=== PATIENT | female | born 1975 | race Caucasian/White ===

== ENCOUNTER → 2016-12-08 | Outpatient (CLI) | payer OTHER ==
--- NOTE | 2016-12-08 16:55 | Diagnostic Imaging Report ---
INDICATION: anatomical survey. COMPARISON: None. DISCUSSION: Transabdominal sonographic evaluation of the gravid uterus was performed. Marginal placenta previa is noted. The placenta is located anteriorly, and the margin appears to abut the internal cervical os. Single live intrauterine at 20 weeks 2 days by today's sonographic measurements. presentation is transverse. heart rate measures 138 beats per minute. The spine and cord insertion were not well seen due to positioning. Otherwise, there is good visualization of the kidneys, bladder, stomach, brain, four-chamber heart, and three-vessel cord. Biparietal diameter measures 4.6 cm. Head circumference measures 17.2 cm. Abdominal circumference measures 15.3 cm. Femur length measures 3.3 cm. IMPRESSION: 1. Single live intrauterine at 20 weeks 2 days by sonographic measurements. 2. Poor visualization of the spine and cord insertion due to positioning. Recommend short-term sonographic followup. 3. Marginal placenta previa. Dictated by: Dictated on workstation # [id number]
== END ==
LOC: RAD 15:05
PROVIDERS: ATTEND Obstetrics & Gynecology
DX: Z36 Encounter for antenatal screening of mother (principal); Z3A.20 20 weeks gestation of pregnancy
CPT/HCPCS: 76805

== ENCOUNTER 2017-04-14 18:45 | Inpatient (IN) | payer OTHER ==
[~2017-04-14] VITALS: Ht 167.6 cm; Wt 83.9 kg
[2017-04-14] VITALS (8 sets, daily range): BP systolic 114–130; BP diastolic 62–82
[2017-04-14] MEDS ORDERED: LACTATED RINGERS 1,000 ML IV ONE (19:15)
--- OUTSIDE RECORDS SUMMARY | 2017-04-14 19:19 | XMS REPORT ---
Author Author MILAD HOLLY Organization [employer] Address Unknown Phone Unavailable Care Team Providers Care Residential Mortgage Manager Name Role Phone MILAD HOLLY CP Unavailable Allergies No Known Allergies Problems Problem Type Condition Code Onset Dates Condition Status Assessment Encounter for immunization Z23 Active Problem Dysfunction of Eustachian tube 381.81 Active Problem Headache 784.0 Active Problem Unspecified viral infection, in conditions classified elsewhere and of unspecified site 079.99 Active Problem Acute pharyngitis 462 Active Problem Allergy, unspecified not elsewhere classified 995.3 Active Problem Need for prophylactic vaccination and inoculation, Influenza V04.81 Active Problem Other diseases of nasal cavity and sinuses 478.19 Active Medications No Known Medications Procedures Procedure Coding System Code Date SINGLE IMMUNIZATION ADMIN CPT-4 81797 May 16, 2015 FLUARIX QUAD (3 & UP)-GSK-2014 CPT-4 36432 May 16, 2015 Results No Known Results Immunizations Vaccine Administration Date FLUARIX QUAD (3 & UP)-GSK-2014May 16, 2015 Summary Purpose eClinicalWorks Submission
--- OUTSIDE RECORDS SUMMARY | 2017-04-14 19:19 | XMS REPORT ---
Author Author MILAD HOLLY [facility] [employer] [facility] Address [address] [place] [address] Care Team Providers Care Lamp Mechanic Name Role Phone MILAD HOLLY Unavailable PROBLEMS Unknown Problems ALLERGIES Substance Reaction Event Type Date Status N.K.D.A. Unknown Non Drug Allergy Aug, Unknown SOCIAL HISTORY No smoking Hx information available PLAN OF CARE Activity Details Follow Up 1 Week if no improvement Reason: VITAL SIGNS Height 65 in 2016-08-18 Weight 155 lbs 2016-08-18 Temperature 99.1 degrees Fahrenheit 2016-08-18 Heart Rate 86 bpm 2016-08-18 Respiratory Rate 16 2016-08-18 BMI 25.79 kg/m2 2016-08-18 Blood pressure systolic 118 mmHg 2016-08-18 Blood pressure diastolic 68 mmHg 2016-08-18 MEDICATIONS Unknown Medications RESULTS Name Result Date Reference Range MONO TEST (IN HOUSE) RESULTS negative Control + Lot # [id number] Exp date 11/06/2017 PROCEDURES Procedure Date Ordered Related Diagnosis Body Site HETEROPHILE ANTIBODIES Aug 18, 2016 Office Visit, Est Pt., Level 4 Aug 18, 2016 IMMUNIZATIONS No Known Immunizations
--- OUTSIDE RECORDS SUMMARY | 2017-04-14 19:19 | XMS REPORT ---
Author Author MILAD HOLLY [facility] eClinicalWorks Address Unknown Phone Unavailable Care Team Providers Care Aircraft Machinist Helper Name Role Phone MILAD HOLLY CP Unavailable [...] System Code Date SINGLE IMMUNIZATION ADMIN CPT-4 44435 May 27, 2015 TDAP (BOOSTRIX) CPT-4 64974 May 27, 2015 Results No Known Results Immunizations Vaccine Administration Date TDAP (BOOSTRIX) May 27, 2015 Summary Purpose eClinicalWorks Submission
--- OUTSIDE RECORDS SUMMARY | 2017-04-14 19:19 | XMS REPORT | Clinical Summary ---
Author Author User, [employer] Organization Portia Brewer DO, FACP Address Unknown Phone Allergies, Adverse Reactions, Alerts Allergy Name Reaction Description Start Date Severity Status Provider No Known Allergies Portia Brewer Conditions or Problems Problem Name Problem Code Onset Date Status Entry Date Provider Comment Standard Description Annotate CERVICAL RADICULOPATHY, RIGHT 723.4 Resolved Portia Brewer Brachial neuritis or radiculitis NOS NECK PAIN 723.1 Resolved Portia Brewer Cervicalgia ULNAR NERVE ENTRAPMENT, RIGHT 354.2 Resolved Portia Brewer Lesion of ulnar nerve WELL WOMAN V70.0 Resolved Portia Brewer Routine general medical examination at a health care facility HEMORRHOIDS 455.6 Active Portia Brewer Unspecified hemorrhoids without mention of complication HEMATURIA UNSPECIFIED 599.70 Resolved Portia Brewer Hematuria, unspecified CONTUSION, TRUNK 922.9 Resolved Portia Brewer Contusion of unspecified part of trunk INFLUENZA 487.8 Resolved Portia Brewer Influenza with other manifestations WELL WOMAN V70.0 Active Portia Brewer Routine general medical examination at a health care facility Medication List Medication Instructions Start Date Stop Date Generic Name NDC Status Provider Patient Instruction NAPROXEN 500 MG TAB 1 PO BID for 7 days then prn NAPROXEN 38668158637 No Longer Active Portiajeff Brewer LORTAB 5 5-500 MG TABS 1 to 2 PO Q6hrs prn ACETAMINOPHEN-HYDROCODONE 94530367858 No Longer Active Portia Swapna Brewer VALIUM 2 MG TABS 1/4 to 1/2 PO QHS prn muscle spasm DIAZEPAM 43862153005 No Longer Active Portia Swapna Brewer TAMIFLU 75 MG CAPS 1 po BID OSELTAMIVIR PHOSPHATE 81304248036 No Longer Active Portia Swapna Brewer CAROL 3-0.03 MG TABS 1 PO daily DROSPIRENONE-ETHINYL ESTRADIOL 56476571503 Active Portia Swapna Brewer XANAX 0.25 MG TABS 1 PO QHS prn ALPRAZOLAM 97755512655 Active Juany Sun PROAIR HFA 108 (90 BASE) MCG/ACT AERS 2 puffs Q4hrs prn wheezing ALBUTEROL SULFATE 45669015374 Active Portiajeff Brewer LIDOCAINE VISCOUS GEL Apply small amouunt on rectal area Q3hrs prn anal pain LIDOCAINE VISCOUS GEL No Longer Active Portiajeff Brewer LIDOCAINE VISCOUS 2 % SOLN 1/2 teaspooon on rectal area Q3hrs prn anal pain LIDOCAINE HCL 68439031749 No Longer Active Portiajeff Brewer ANUSOL-HC 25 MG SUPP 1 [place] QID prn HYDROCORTISONE ACETATE 59724882689 No Longer Active Portia Swapna Brewer ANUSOL-HC 2.5 % CREA apply to affected areas QID prn HYDROCORTISONE 57116304877 No Longer Active Portiajeff Brewer PREDNISONE 20 MG TAB 3 PO at once one day , then 2 PO at once daily for two days, then 1 PO daily for two days PREDNISONE 83123179097 No Longer Active Portiajeff Brewer Vital Signs Date Name Value Unit Range Description blood pressure, diastolic - 8462-4 67 mm[Hg] BP gray blood pressure, systolic - 8480-6 116 mm[Hg] BP sys pulse rate E&M - 8867-4 58 /min Heart rate respiratory rate E&M - 9279-1 14 /min Resp rate temperature E&M 98.8 [degF] Body temperature weight E&M - 3141-9 155 [lb_av] Weight Measured Diagnostic Results Date Name Value Unit Range Description Clinical Lists Update: CBC,CMP,FLP,TSH - Chemistry Estimated Glomerular Filtration Rate (calc) 75 mL/min/1.73m2 glucose, plasma fasting 93 mg/dL albumin, serum 4.0 g/dL alkaline phosphatase, serum 40 U/L urea nitrogen, blood 10 mg/dL calcium, serum 8.9 mg/dL chloride, serum 105 mmol/L cholesterol, serum 188 mg/dL cholesterol/HDL ratio, serum, percent 2.9 anion gap, serum 9 sodium, serum 137 mmol/L triglyceride, serum, fasting 127 mg/dL bilirubin, serum, total 0.4 mg/dL alanine aminotransferase (SGPT), serum 7 U/L aspartate aminotransferase (SGOT), serum 14 U/L protein, total, serum 6.5 g/dL potassium, serum 3.6 mmol/L LDL cholesterol, serum 99 mg/dL thyroid stimulating hormone, serum 1.31 u[iU]/mL HDL cholesterol, serum 64.0 mg/dL creatinine, serum 0.9 mg/dL carbon dioxide, venous blood 27.0 mmol/L Clinical Lists Update: CBC,CMP,FLP,TSH - Hematology erythrocyte (RBC) count 3.90 10*6/mm3 leukocyte count, blood 7.4 10*3/mm3 mean corpuscular volume, RBC 98 fL red blood cell distribution width 12.4 % hemoglobin, blood 11.9 g/dL platelet count 193 10*3/mm3 hematocrit, blood 38 % Encounters Code Encounter Date Provider Facility CPT-95361 Ofc Vst, Est Level III 16:59:39 GLASS BEAD MAKER Portia Brewer DO, FACP CPT-30208 Ofc Vst, Est Level III 10:01:20 CDT Portia Brewer DO, FACP CPT-36368 Ofc Vst, Est Level III 14:59:14 GL[employer] BEAD MAK[employer] Portia Brewer DO, FACP CPT-57038 Ofc Vst, Est Level III 10:07:03 CDT Portia Brewer DO, FACP CPT-15829 Ofc Vst, New Level III 14:53:27 CDT Portia Brewer, DO, FACP Procedures Code Procedure Name Date Entry Date Standard Description CPT-59401 Handling of specimen from office to lab 17:55:09 GLASS BEAD MAK[employer] CPT-05416 Preventive, Est, (18-39) 17:55:09 GLASS BEAD MAK[employer] CPT-29860 Handling of specimen from office to lab 13:07:33 GLASS BEAD MAK[employer] CPT-09417 Preventive, Est, (18-39) 13:07:33 GLASS BEAD MAKER CPT-88362 Handling of specimen from office to lab 14:20:31 CDT CPT-12442 Preventive, Est, (18-39) 14:20:31 CDT CPT-51215 Handling of specimen from office to lab 13:20:18 CDT CPT-31340 Preventive, Est, (18-39) 13:20:18 CDT CPT-01524 Handling of specimen from office to lab 13:18:32 CDT CPT-17082 Preventive, Est, (18-39) 14:20:08 CDT CPT-92408 Handling of specimen from office to lab 14:20:08 CDT CPT-25764 Preventive, Est, (18-39) 14:18:19 CDT CPT-21288 Handling of specimen from office to lab 14:18:19 CDT CPT-96414 Preventive, Est, (18-39) 14:36:13 CDT CPT-60923 Handling of specimen from office to lab 14:36:13 CDT
--- OUTSIDE RECORDS SUMMARY | 2017-04-14 19:20 | XMS REPORT | Clinical Summary ---
Author Author User, [employer] Organization Portia Brewer DO, FACP Address Unknown [...] BID for 7 days then prn NAPROXEN [id number] No Longer Active Portiajeff Brewer LORTAB 5 5-500 MG TABS 1 to 2 PO Q6hrs prn ACETAMINOPHEN-HYDROCODONE 30544286014 No Longer Active Portia Swapna Brewer VALIUM 2 MG TABS 1/4 to 1/2 PO QHS prn muscle spasm DIAZEPAM 38793981173 No Longer Active Portia Swapna Brewer TAMIFLU 75 MG CAPS 1 po BID OSELTAMIVIR PHOSPHATE 79190312910 No Longer Active Portia Swapna Brewer CAROL 3-0.03 MG TABS 1 PO daily DROSPIRENONE-ETHINYL ESTRADIOL 32971393500 Active Portia Swapna Brewer XANAX 0.25 MG TABS 1 PO QHS prn ALPRAZOLAM 51937878568 Active Juany Sun PROAIR HFA 108 (90 BASE) MCG/ACT AERS 2 puffs Q4hrs prn wheezing ALBUTEROL SULFATE 56023827241 Active Portiajeff Brewer LIDOCAINE VISCOUS GEL Apply small amouunt on rectal area Q3hrs prn anal pain LIDOCAINE VISCOUS GEL No Longer Active Portiajeff Brewer LIDOCAINE VISCOUS 2 % SOLN 1/2 teaspooon on rectal area Q3hrs prn anal pain LIDOCAINE HCL 52849653936 No Longer Active Portiajeff Brewer ANUSOL-HC 25 MG SUPP 1 [place] QID prn HYDROCORTISONE ACETATE 24976617466 No Longer Active Portia Swapna Brewer ANUSOL-HC 2.5 % CREA apply to affected areas QID prn HYDROCORTISONE 28340153532 No Longer Active Portiajeff Brewer PREDNISONE 20 MG TAB 3 PO at once one day , then 2 PO at once daily for two days, then 1 PO daily for two days PREDNISONE 42366147078 No Longer Active Portiajeff Brewer Vital Signs [...] % Encounters Code Encounter Date Provider Facility CPT-32200 Ofc Vst, Est Level III 16:59:39 [employer] UN[employer]IED COMMUNICATIONS ENGINEER Portia Brewer DO, FACP CPT-19863 Ofc Vst, Est Level III 10:01:20 CDT Portia Brewer DO, FACP CPT-89271 Ofc Vst, Est Level III 14:59:14 [employer] UN[employer]IED COMMUNICATIONS ENGINEER Portia Brewer DO, FACP CPT-01386 Ofc Vst, Est Level III 10:07:03 CDT Portia Brewer DO, FACP CPT-83468 Ofc Vst, New Level III 14:53:27 CDT Portia Brewer, DO, FACP Procedures Code Procedure Name Date Entry Date Standard Description CPT-05914 Handling of specimen from office to lab 17:55:09 [employer]ISCO UNIFIED COMMUNICATIONS ENGINEER CPT-26957 Preventive, Est, (18-39) 17:55:09 CISCO UNIFIED COMMUNICATIONS ENGINEER CPT-75436 Handling of specimen from office to lab 13:07:33 CISCO UNIFIED COMMUNICATIONS ENGINEER CPT-70009 Preventive, Est, (18-39) 13:07:33 CISCO UNIFIED COMMUNICATIONS ENGINEER CPT-64200 Handling of specimen from office to lab 14:20:31 CDT CPT-27939 Preventive, Est, (18-39) 14:20:31 CDT CPT-68280 Handling of specimen from office to lab 13:20:18 CDT CPT-46910 Preventive, Est, (18-39) 13:20:18 CDT CPT-01257 Handling of specimen from office to lab 13:18:32 CDT CPT-16189 Preventive, Est, (18-39) 14:20:08 CDT CPT-52899 Handling of specimen from office to lab 14:20:08 CDT CPT-06492 Preventive, Est, (18-39) 14:18:19 CDT CPT-21108 Handling of specimen from office to lab 14:18:19 CDT CPT-19482 Preventive, Est, (18-39) 14:36:13 CDT CPT-00695 Handling of specimen from office to lab 14:36:13 CDT
--- OUTSIDE RECORDS SUMMARY | 2017-04-14 19:20 | XMS REPORT | Clinical Summary ---
Author Author User, [employer] Organization Portia Brewer DO, FACP Address Unknown [...] BID for 7 days then prn NAPROXEN 12999876444 No Longer Active Portiajeff Brewer LORTAB 5 5-500 MG TABS 1 to 2 PO Q6hrs prn ACETAMINOPHEN-HYDROCODONE 30686364205 No Longer Active Portia Swapna Brewer VALIUM 2 MG TABS 1/4 to 1/2 PO QHS prn muscle spasm DIAZEPAM 65589892187 No Longer Active Portia Swapna Brewer TAMIFLU 75 MG CAPS 1 po BID OSELTAMIVIR PHOSPHATE 38725659929 No Longer Active Portia Swapna Brewer CAROL 3-0.03 MG TABS 1 PO daily DROSPIRENONE-ETHINYL ESTRADIOL 47447444318 Active Portia Swapna Brewer XANAX 0.25 MG TABS 1 PO QHS prn ALPRAZOLAM 54518900492 Active Juany Sun PROAIR HFA 108 (90 BASE) MCG/ACT AERS 2 puffs Q4hrs prn wheezing ALBUTEROL SULFATE 12129522446 Active Portiajeff Brewer LIDOCAINE VISCOUS GEL Apply small amouunt on rectal area Q3hrs prn anal pain LIDOCAINE VISCOUS GEL No Longer Active Portiajeff Brewer LIDOCAINE VISCOUS 2 % SOLN 1/2 teaspooon on rectal area Q3hrs prn anal pain LIDOCAINE HCL 53509266377 No Longer Active Portiajeff Brewer ANUSOL-HC 25 MG SUPP 1 [place] QID prn HYDROCORTISONE ACETATE 50261252155 No Longer Active Portia Swapna Brewer ANUSOL-HC 2.5 % CREA apply to affected areas QID prn HYDROCORTISONE 49162807832 No Longer Active Portiajeff Brewer PREDNISONE 20 MG TAB 3 PO at once one day , then 2 PO at once daily for two days, then 1 PO daily for two days PREDNISONE 88342087454 No Longer Active Portiajeff Brewer Vital Signs [...] % Encounters Code Encounter Date Provider Facility CPT-69562 Ofc Vst, Est Level III 16:59:39 HOUSEHOLD REFRIGERATION MECHANIC Portia Brewer DO, FACP CPT-50128 Ofc Vst, Est Level III 10:01:20 CDT Portia Brewer DO, FACP CPT-89240 Ofc Vst, Est Level III 14:59:14 HOUSEHOLD REFRIGERATION MECHANIC Portia Brewer DO, FACP CPT-76974 Ofc Vst, Est Level III 10:07:03 CDT Portia Brewer DO, FACP CPT-41074 Ofc Vst, New Level III 14:53:27 CDT Portia Brewer, DO, FACP Procedures Code Procedure Name Date Entry Date Standard Description CPT-49274 Handling of specimen from office to lab 17:55:09 HOUSEHOLD REFRIGERATION MECHANIC CPT-28087 Preventive, Est, (18-39) 17:55:09 HOUSEHOLD REFRIGERATION MECHANIC CPT-07679 Handling of specimen from office to lab 13:07:33 HOUSEHOLD REFRIGERATION MECHANIC CPT-45479 Preventive, Est, (18-39) 13:07:33 HOUSEHOLD REFRIGERATION MECHANIC CPT-05442 Handling of specimen from office to lab 14:20:31 CDT CPT-38515 Preventive, Est, (18-39) 14:20:31 CDT CPT-37406 Handling of specimen from office to lab 13:20:18 CDT CPT-99217 Preventive, Est, (18-39) 13:20:18 CDT CPT-26806 Handling of specimen from office to lab 13:18:32 CDT CPT-70878 Preventive, Est, (18-39) 14:20:08 CDT CPT-41339 Handling of specimen from office to lab 14:20:08 CDT CPT-03050 Preventive, Est, (18-39) 14:18:19 CDT CPT-84498 Handling of specimen from office to lab 14:18:19 CDT CPT-04918 Preventive, Est, (18-39) 14:36:13 CDT CPT-89272 Handling of specimen from office to lab 14:36:13 CDT
--- OUTSIDE RECORDS SUMMARY | 2017-04-14 19:20 | XMS REPORT ---
Author Author MILAD HOLLY [facility] eClinicalWorks Address Unknown Phone Unavailable Care Team Providers Care Adjunct Writing Instructor Name Role Phone MILAD HOLLY CP Unavailable [...] System Code Date SINGLE IMMUNIZATION ADMIN CPT-4 32457 May 11, 2016 FLUARIX QUAD P-FREE 3 AND UP .50 2015 CPT-4 13961 May 11, 2016 Results No Known Results Immunizations Vaccine Administration Date FLUARIX QUAD P-FREE 3 AND UP .50 2015May 11, 2016 Summary Purpose eClinicalWorks Submission
--- OUTSIDE RECORDS SUMMARY | 2017-04-14 19:20 | XMS REPORT | Clinical Summary ---
Author Author User, [employer] Organization Portia Brewer DO, FACP Address Unknown [...] BID for 7 days then prn NAPROXEN 70507357140 No Longer Active Portiajeff Brewer LORTAB 5 5-500 MG TABS 1 to 2 PO Q6hrs prn ACETAMINOPHEN-HYDROCODONE 34072807875 No Longer Active Portia Swapna Brewer VALIUM 2 MG TABS 1/4 to 1/2 PO QHS prn muscle spasm DIAZEPAM 94181624501 No Longer Active Portia Swapna Brewer TAMIFLU 75 MG CAPS 1 po BID OSELTAMIVIR PHOSPHATE 36145564214 No Longer Active Portia Swapna Brewer CAROL 3-0.03 MG TABS 1 PO daily DROSPIRENONE-ETHINYL ESTRADIOL 95505356730 Active Portia Swapna Brweer XANAX 0.25 MG TABS 1 PO QHS prn ALPRAZOLAM 82650273615 Active Juany Sun PROAIR HFA 108 (90 BASE) MCG/ACT AERS 2 puffs Q4hrs prn wheezing ALBUTEROL SULFATE 38670366180 Active Portiajeff Brewer LIDOCAINE VISCOUS GEL Apply small amouunt on rectal area Q3hrs prn anal pain LIDOCAINE VISCOUS GEL No Longer Active Portiajeff Brewer LIDOCAINE VISCOUS 2 % SOLN 1/2 teaspooon on rectal area Q3hrs prn anal pain LIDOCAINE HCL 04470393109 No Longer Active Portiajeff Brewer ANUSOL-HC 25 MG SUPP 1 [place] QID prn HYDROCORTISONE ACETATE 12522557083 No Longer Active Portia Swapna Brewer ANUSOL-HC 2.5 % CREA apply to affected areas QID prn HYDROCORTISONE 43264862765 No Longer Active Portiajeff Brewer PREDNISONE 20 MG TAB 3 PO at once one day , then 2 PO at once daily for two days, then 1 PO daily for two days PREDNISONE 78291742700 No Longer Active Portiajeff Brewer Vital Signs [...] % Encounters Code Encounter Date Provider Facility CPT-31447 Ofc Vst, Est Level III 16:59:39 STACKER DRIVER Portia Brewer DO, FACP CPT-99991 Ofc Vst, Est Level III 10:01:20 CDT Portia Brewer DO, FACP CPT-40630 Ofc Vst, Est Level III 14:59:14 STACKER DRIVER Portia Brewer DO, FACP CPT-91572 Ofc Vst, Est Level III 10:07:03 CDT Portia Brewer DO, FACP CPT-53138 Ofc Vst, New Level III 14:53:27 CDT Portia Brewer, DO, FACP Procedures Code Procedure Name Date Entry Date Standard Description CPT-33008 Handling of specimen from office to lab 17:55:09 STACKER DRIVER CPT-16879 Preventive, Est, (18-39) 17:55:09 STACKER DRIVER CPT-87488 Handling of specimen from office to lab 13:07:33 STACKER DRIVER CPT-40874 Preventive, Est, (18-39) 13:07:33 STACKER DRIVER CPT-37921 Handling of specimen from office to lab 14:20:31 CDT CPT-08257 Preventive, Est, (18-39) 14:20:31 CDT CPT-37993 Handling of specimen from office to lab 13:20:18 CDT CPT-75576 Preventive, Est, (18-39) 13:20:18 CDT CPT-55445 Handling of specimen from office to lab 13:18:32 CDT CPT-04589 Preventive, Est, (18-39) 14:20:08 CDT CPT-42786 Handling of specimen from office to lab 14:20:08 CDT CPT-55119 Preventive, Est, (18-39) 14:18:19 CDT CPT-77048 Handling of specimen from office to lab 14:18:19 CDT CPT-97689 Preventive, Est, (18-39) 14:36:13 CDT CPT-10629 Handling of specimen from office to lab 14:36:13 CDT
[2017-04-14] MEDS ORDERED: MISOPROSTOL 100 MCG (CYTOTEC) TAB ONE (19:54)
[2017-04-14] MEDS ORDERED: D5 LR IV SOLUTION 1,000 ML IV ONE (22:01)
[2017-04-14] MEDS ORDERED: NS (IVPB) 50 ML ONE (22:10)
[2017-04-14] MEDS ORDERED: AMPICILLIN 2000 MG INJECTION (IM/IV) ONE (22:10)
[2017-04-14] MEDS ORDERED: LACTATED RINGERS 1,000 ML IV SCH (22:12)
[2017-04-14] MEDS ORDERED: AMPICILLIN INJECTION 2,000 MG in NS (IVPB) 50 ML IV SCH (22:12)
[2017-04-14] MEDS ORDERED: MISOPROSTOL 100 MCG (CYTOTEC) TAB PO ONE (22:15)
[2017-04-14] MEDS ORDERED: HYDROmorphone (DILAUDID) 2 MG/ML VIAL IVP PRN (22:15)
[2017-04-14 22:19] LABS: BASOPHILS % (AUTO) 0 % (0-10); EOSINOPHILS # (AUTO) 0.1 10^3/uL (0.0-0.3); EOSINOPHILS % (AUTO) 1 % (0-10); LYMPHOCYTES # (AUTO) 1.3 X 10^3 (1.0-4.0); LYMPHOCYTES % (AUTO) 16 % (12-44); MEAN CORPUSCULAR HEMOGLOBIN 33 PG (25-34); MEAN CORPUSCULAR HGB CONC 34 G/DL (32-36); MEAN CORPUSCULAR VOLUME 96 FL (80-99); MEAN PLATELET VOLUME 11.6 FL (7.4-10.4); MONOCYTES # (AUTO) 0.5 X 10^3 (0.0-1.0); MONOCYTES % (AUTO) 6 % (0-12); NEUTROPHILS # (AUTO) 6.5 X 10^3 (1.8-7.8); NEUTROPHILS % (AUTO) 77 % (42-75); PLATELET COUNT 146 10^3/uL (130-400); RED BLOOD COUNT 3.53 10^6/uL (4.35-5.85); RED CELL DISTRIBUTION WIDTH 14.1 % (10.0-14.5); WHITE BLOOD COUNT 8.5 10^3/uL (4.3-11.0)
[2017-04-14] MEDS: D5 LR IV SOLUTION 1,000 ML IV SCH (22:30)
[2017-04-14] MEDS ORDERED: B6/F1TAB PO (23:00)
[2017-04-14] MEDS ORDERED: DOXY25TA46 PO (23:00)
[2017-04-14] MEDS ORDERED: PREN-142 PO (23:00)
[2017-04-15] VITALS (63 sets, daily range): BP systolic 91–155; BP diastolic 50–90
[2017-04-15] MEDS ORDERED: MISOPROSTOL 100 MCG (CYTOTEC) TAB PO SCH
[2017-04-15] MEDS: AMPICILLIN INJECTION 1,000 MG in NS (IVPB) 50 ML IV SCH ×5 (02:45→18:27)
[2017-04-15] MEDS: D5 LR IV SOLUTION 1,000 ML IV SCH ×2 (07:44→17:05)
[2017-04-15] MEDS ORDERED: OXYTOCIN/NORMAL SALINE 500 ML IV ONE ×3 (08:09→23:02)
[2017-04-15] MEDS ORDERED: OXYTOCIN/NORMAL SALINE 500 ML IV SCH ×2 (08:15→23:29)
[2017-04-15] MEDS: CATHETER FLUSH 10 ML SYR IV SCH (08:26)
[2017-04-15] MEDS ORDERED: SUFENTA 0.6MCG/ML BUPIVA 0.125 100 ML ONE (10:41)
--- NOTE | 2017-04-15 11:08 | History & Physical-OB ---
OB - Chief Complaint & HPI Date/Time Date of Admission: Date of Admission: Apr 14, 2017 at 6:45 pm Time Seen by Provider: 07:00 Chief Complaint/History OB-Reason for Admission/Chief: Induction of Labor Hx : 3 Hx Para: 2 Expected Date of Delivery: Apr 28, 2017 Gestational Age in Weeks: 38 Indication for induction: other (Oligo, AMA, Abn Quad screen) Admission Nurse Assessment Rev: Yes History of Labs O pos Antibody neg RI RPR NR HBsAg NR HIV NR GC neg GBS pos Allergies and Home Medications Allergies Coded Allergies: No Known Drug Allergies (Unverified , 04/14/17) Home Medications B6/FA/B12/Co Q10/Herb No.225 1 Each Tablet, 1 EACH PO DAILY, (Reported) Doxylamine Succinate 25 Mg Tablet, 25 MG PO HS, (Reported) Vit No.124/Iron/FA 1 Each Tablet, 1 EACH PO DAILY, (Reported) OB - History Hx of Present Care: Yes Ultrasounds: Abnormal US findings (oligohydramnios) Obstetrical Complications: Other (AMA, Abnormal quad screen) Medical Complications: None Patient Past Medical History none Social History/Family History Recent Infectious Disease Expo: No OB - Admission Exam Physical Exam Date Seen by Provider: Apr 15, 2017 Time Seen by Provider: 07:00 Vitals: Vital Signs 04/15/17 04/15/17 08:30 09:30 Temp 98.4 Pulse 78 Resp 16 B/P (MAP) 134/76 O2 Delivery Room Air HEENT: NCAT Heart: Rhythm Normal Lungs: Clear Abdomen: Gravid Extremities: Normal Reflexes: Normal Cervical Dilatation: 3cm Effacement: 75% Station: -1 Membranes: Intact Heart Rate: 130's Accelerations: Accelerations Present Decelerations: No Decelerations Short Term Variability: Present Paper Cup Handle Machine Operator Variability: Average (6-25) Contractions on Admission: >10 Minutes Apart Intensity: Mild Roberts Scoring Tool (Modified) Dilation (cm): 1-2cm (1) Effacement (%): 51-79% (2) Descent/Station: -1,0 (2) Cervix Consistency: Soft (2) Cervix Position: Anterior (2) Roberts Score: 9 Labs Laboratory Tests Test 04/14/17 19:35 Range/Units White Blood Count 8.5 4.3-11.0 10^3/uL Red Blood Count 3.53 L 4.35-5.85 10^6/uL Hemoglobin 11.6 11.5-16.0 G/DL Hematocrit 34 L 35-52 % Mean Corpuscular Volume 96 80-99 FL Mean Corpuscular Hemoglobin 33 25-34 PG Mean Corpuscular Hemoglobin Concent 34 32-36 G/DL Red Cell Distribution Width 14.1 10.0-14.5 % Platelet Count 146 130-400 10^3/uL Mean Platelet Volume 11.6 H 7.4-10.4 FL Neutrophils (%) (Auto) 77 H 42-75 % Lymphocytes (%) (Auto) 16 12-44 % Monocytes (%) (Auto) 6 0-12 % Eosinophils (%) (Auto) 1 0-10 % Basophils (%) (Auto) 0 0-10 % Neutrophils # (Auto) 6.5 1.8-7.8 X 10^3 Lymphocytes # (Auto) 1.3 1.0-4.0 X 10^3 Monocytes # (Auto) 0.5 0.0-1.0 X 10^3 Eosinophils # (Auto) 0.1 0.0-0.3 10^3/uL Basophils # (Auto) 0.0 0.0-0.1 10^3/uL OB - Assessment/Plan/Diagnosis Assessment Assessment: induction of labor Plan Plan: Induction Induction Method: per Misoprostol Protocol Discharge Diagnosis Diagnosis: 41 yo @ 38.1 AMA Abnormal quad Oligo GBS + TIKI WALL DO Apr 15, 2017 11:07 am
[2017-04-15] MEDS ORDERED: BUPIVACAINE 0.25% 30 ML (SENSORCAINE) VIAL ONE ×2 (11:28→20:28)
[2017-04-15] MEDS ORDERED: fentaNYL INJECTION 100 MCG/2 ML AMP ONE ×2 (11:29→22:16)
[2017-04-15] MEDS ORDERED: LACTATED RINGERS 1,000 ML IV ONE (12:34)
[2017-04-15] MEDS ORDERED: diphenhydrAMINE 50 MG/ML INJ (BENADRYL) IV PRN (12:45)
[2017-04-15] MEDS ORDERED: EPIDURAL (SUFENTA 0.6MCG/ML BUPIVA 0.125%) 100 ML BAG EPI PRN (12:45)
[2017-04-15] MEDS ORDERED: NALOXONE 0.4 MG/ML 1 ML (NARCAN) VIAL IV PRN ×2 (12:45)
[2017-04-15] MEDS ORDERED: METOCLOPRAMIDE INJ 10 MG/2 ML (REGLAN) IV PRN (12:45)
[2017-04-15] MEDS: ONDANSETRON 4 MG/2 ML (SDV) Z0FRAN IV PRN ×3 (13:45→21:42)
[2017-04-15] MEDS ORDERED: FAMOTIDINE 20MG/2ML IV (PEPCID) ONE (21:32)
[2017-04-15] MEDS ORDERED: CITRIC ACID/SOB CIT (BICITRA) 30 ML UDC ONE (21:32)
[2017-04-15] MEDS ORDERED: ceFAZolin 2 GM/50 ML NS 50 ML ONE (21:43)
[2017-04-15] MEDS ORDERED: LIDOCAINE PF 2% 5 ML (XYLOCAINE) VIAL ONE (21:44)
[2017-04-15] MEDS ORDERED: LACTATED RINGERS 1,000 ML IV PRN (21:48)
[2017-04-15] MEDS ORDERED: METOCLOPRAMIDE INJ 10 MG/2 ML (REGLAN) IV ONE (22:00)
[2017-04-15] MEDS ORDERED: CITRIC ACID/SOB CIT (BICITRA) 30 ML UDC PO ONE (22:00)
[2017-04-15] MEDS ORDERED: ceFAZolin 2 GM/50 ML NS 50 ML IV ONE (22:00)
[2017-04-15] MEDS ORDERED: FAMOTIDINE 20MG/2ML IV (PEPCID) IV ONE (22:00)
--- NOTE | 2017-04-15 22:03 | Progress Note-Standard ---
Standard Progress Note Progress Notes/Assess & Plan Date Seen by Provider: Apr 15, 2017 Time Seen by Provider: 21:50 Progress/Assessment & Plan Patient was admitted last night for induction of labor. Cytotec 100 g by mouth was given and an adequate contraction pattern was achieved by doing so. The patient was given 1 mg of Dilaudid IV for pain during her early labor progress, this morning spontaneous rupture of membranes occurred and IV Pitocin was initiated to augment her labor pattern. Throughout the day the patient has slowly progressed in cervical dilatation however vertex has not descended in station. At this point the patient has dilated to 8 cm however station still remains at -2, and there is significant bleeding on exam noted. There is also repetitive deep variable decelerations into the 70s with each contraction lasting approximately a minute to minute and a half. I discussed with the patient my concern for intolerance of labor, as well as intolerance of second stage of labor if we are to progress that far. Due to concern for compromise I discussed the patient proceeding with . Risk of the procedure was reviewed with the patient in detail, as well as risk of proceeding with vaginal delivery, after everything was discussed with her, and her family we came to the agreement that would be the best plan of care going forward. TIKI WALL DO Apr 15, 2017 10:03 pm
[2017-04-15] MEDS ORDERED: BUPIVACAINE 0.5% 30 ML (SENSORCAINE) VIAL ONE (22:52)
[2017-04-15] MEDS: KETOROLAC 30 MG/ML VIAL IVP SCH (23:00)
[2017-04-15] MEDS ORDERED: HYDROmorphone (DILAUDID) 2 MG/ML VIAL IVP PRN (23:30)
[2017-04-15] MEDS ORDERED: TETANUS,DIPTH,PERTUSS P/F (BOOSTRIX) 0.5 ML VIAL IM SCH (23:30)
[2017-04-15] MEDS ORDERED: MEASLES,MUMPS,RUBELLA 1 EA INJ SC SCH (23:30)
[2017-04-15] MEDS ORDERED: ONDANSETRON 4 MG/2 ML (SDV) Z0FRAN IVP PRN ×2 (23:30)
[2017-04-15] MEDS ORDERED: morphine INJ 10 MG/ML 1ML (SYR OR VIAL) IVP PRN (23:30)
--- NOTE | 2017-04-15 23:34 | Progress Note-Post Operative ---
Post-Operative Progess Note Surgeon (s)/Tapper Operator (s) Surgeon TIKI WALL DO Tapper Operator: Karena Carver MS3 Pre-Operative Diagnosis 38 week failure to descend, VIVIAN Post-Operative Diagnosis same, + large blood clot at delivery of infant Procedure & Operative Findings Date of Procedure 04/15/17 Procedure Performed/Findings PLTCS see dictation Anesthesia Type spinal Estimated Blood Loss Estimated blood loss (mL): 900 Specimens/Packing Specimens Removed placenta TIKI WALL DO Apr 15, 2017 23:33
[2017-04-16] VITALS (7 sets, daily range): BP systolic 113–129; BP diastolic 62–87
[2017-04-16] MEDS: HYDROcodone/APAP 5 MG/325 MG (LORTAB) TAB PO PRN ×2 (01:07→07:02)
[2017-04-16] MEDS: HYDROmorphone (DILAUDID) 2 MG/ML VIAL IVP PRN ×4 (04:26→16:56)
--- NOTE | 2017-04-16 05:27 | OPERATIVE REPORT ---
DATE OF SERVICE: PREOPERATIVE DIAGNOSES: 1. A 41-year-old at 38 weeks' gestation. 2. Failure to descend. 3. intolerance of labor. POSTOPERATIVE DIAGNOSES: 1. A 41-year-old at 38 weeks' gestation. 2. Failure to descend. 3. intolerance of labor. 4. Large blood clot noted at delivery of infant. PROCEDURE: Primary low transverse section. SURGEON: Paolo Wall DO LOCAL DELIVERY TRUCK DRIVER: Karena Luciano, MS3 ANESTHESIA: Spinal. ESTIMATED BLOOD LOSS: 900 mL. URINE OUTPUT: 400 mL, blood tinged at the end of the procedure. FLUIDS: 650 mL of lactated Ringer's solution. FINDINGS: A live male weighing 7 pounds 1 ounce. Apgars of 9 and 9. Grossly normal appearing uterus, bilateral fallopian tubes and ovaries. Large blood clot noted on the at delivery of the infant. SPECIMEN SENT: Placenta. INDICATIONS FOR PROCEDURE: This 41-year-old female was brought in for induction of labor due to oligohydramnios noted on surveillance. She was being watched due to advanced maternal age and an abnormal clot screen. free cell DNA testing was performed which did not reveal any genetic abnormality. However, surveillance was done due to increased risk for stillbirth. Due to the oligohydramnios I discussed with the patient proceeding with induction. She was brought in yesterday evening and started on 100 mcg of Cytotec p.o. This initiated an adequate contraction pattern necessitating pain medication, therefore I did not proceed with any further doses of Cytotec. This morning I did present to evaluate the patient, she was found to be 3 cm versus a finger tip dilated at admission. She was allowed to continue to progress laboring, Pitocin was started and spontaneous rupture of membranes occurred shortly thereafter. The patient ended up obtaining an epidural for anesthesia and progressed all the way to 8 cm, however, began to have a large amount of bloody show noted, more than usual. There was no descent of the head throughout the day and still remained -2 and the fetus began having prolonged and very deep variable decelerations down into the 60s-70s. Due to this recurrence and failure to descend, I discussed with the patient the risk of proceeding with vaginal delivery versus proceeding with . Both of these were detailed and after a lengthy discussion with her and her family, we decided to proceed with a primary . The patient was then taken to the operating room. OP REPORT: Once in the operating room and spinal anesthesia was found to be adequate, she was placed in the supine position with leftward tilt, prepped and draped in the normal sterile fashion. A Pfannenstiel skin incision is made after anesthesia is tested and timeout is performed. I then take the incision down to the fascia using Bovie electrocautery. The fascial incision is extended laterally using Bovie electrocautery. The superior aspect of the fascial incision is then grasped with Silvestre clamps, tented up and dissected off the underlying rectus muscles. The rectus muscles are then dissected down the midline using Maxwell scissors which expose the peritoneum, it is entered bluntly. Once peritoneal access is achieved, I then place the Ramon ring retractor into the peritoneal incision which offers excellent lateral sidewall retraction. I proceed with making a low transverse incision through the vesicouterine peritoneum and then bluntly dissect the bladder off the lower uterine segment. I then proceed with my myotomy until membranes are visualized at which point rupture of membranes occurs and I extend the uterine incision laterally and superiorly using bandage scissors. The infant is found in the vertex presentation. The 's head is elevated up to the incision where the infant's head is then delivered through the incision with gentle fundal pressure. There is a nuchal cord reduced x1. The anterior and posterior shoulders are delivered and in the process of doing so, there is a large blood clot noted around the . The is then brought out to the operative field where the cord is doubly clamped and cut and is bulb suctioned and the infant is handed off to the awaiting pediatric nurses in attendance. Cord blood was collected, 3 vessel cord with intact placenta is delivered spontaneously thereafter. IV Pitocin is initiated, this is to facilitate uterine contraction. Uterine fundus becomes firmer with bimanual massage. The uterus is then exteriorized and cleared of all endometrial clots and debris. I then proceed with closing the uterine incision using an 0 Vicryl suture in running locked fashion, a 2nd layer of imbricating 0 Monocryl was placed. Hemostasis is noted after doing this, however, there is some slight oozing noted from the dissection plane of the vesicouterine peritoneum. Due to the proximity of the bladder, I decide not to proceed with Bovie cautery nor ligation of this area using suture, due to compromise of the bladder. I then placed Surgicel over this area and hemostasis is noted shortly thereafter. I then reapproximate the bladder flap over the Surgicel using 3-0 Vicryl suture in interrupted fashion. Interceed antiadhesive is placed over this peritoneal incision at that point. After copiously irrigating the pelvis using normal saline, I then proceed with closing the peritoneum using 3-0 Vicryl suture in running fashion. The rectus muscles are reapproximated using 3-0 Vicryl suture in interrupted fashion. The fascia reapproximated using 0 Vicryl suture in running fashion. The subcutaneous tissue reapproximated using 3-0 plain in an interrupted fashion and the skin reapproximated using 4-0 Monocryl in a running subcuticular. Dermabond was applied to the incision and the sterile dressing is adhesive white tape. The patient tolerated the procedure well and was taken to the recovery area in stable condition. Lap and sponge counts correct at the end of the procedure. Instrument count is correct as well. Two g of Ancef were given preoperatively for infection prophylaxis. Job ID: [id number] DocumentID: [id number] Dictated Date: 04/15/2017 23:41:00 Remediation Technician Date: 04/16/2017 05:26:56 Dictated By: PAOLO WALL DO
[2017-04-16 05:55] LABS: BASOPHILS % (AUTO) 0 % (0-10); EOSINOPHILS # (AUTO) 0.1 10^3/uL (0.0-0.3); EOSINOPHILS % (AUTO) 1 % (0-10); LYMPHOCYTES # (AUTO) 1.1 X 10^3 (1.0-4.0); LYMPHOCYTES % (AUTO) 9 % (12-44); MEAN CORPUSCULAR HEMOGLOBIN 32 PG (25-34); MEAN CORPUSCULAR HGB CONC 33 G/DL (32-36); MEAN CORPUSCULAR VOLUME 97 FL (80-99); MEAN PLATELET VOLUME 11.3 FL (7.4-10.4); MONOCYTES # (AUTO) 0.9 X 10^3 (0.0-1.0); MONOCYTES % (AUTO) 8 % (0-12); NEUTROPHILS # (AUTO) 9.5 X 10^3 (1.8-7.8); NEUTROPHILS % (AUTO) 82 % (42-75); PLATELET COUNT 116 10^3/uL (130-400); RED BLOOD COUNT 2.83 10^6/uL (4.35-5.85); RED CELL DISTRIBUTION WIDTH 14.1 % (10.0-14.5); WHITE BLOOD COUNT 11.6 10^3/uL (4.3-11.0)
[2017-04-16] MEDS: KETOROLAC 30 MG/ML VIAL IVP SCH ×3 (07:02→17:46)
[2017-04-16] MEDS: DOCUSATE SODIUM 100 MG (COLACE) CAP PO SCH (08:27)
--- NOTE | 2017-04-16 08:46 | Discharge Inst-Women's Service ---
Discharge Inst-Women's Serv Depart Medication/Instructions New, Converted or Re-Newed RX: RX on Chart Consults/Follow Up Additional Follow Up: Yes Orders/Referrals Dr. Morillo in 7-10 days and in 6 weeks Activity Activity: Activity as Tolerated Driving Instructions: No Driving for 1 Week NO SMOKING: NO SMOKING Nothing Inside Vagina: No Douching, No [place], No Tampons Diet Discharge Diet: No Restrictions Symptoms to Report to : Bleeding Excessive, Pain Increased, Fever Over 101 Degrees F, Vaginal Bleeding Increase, Questions/Concerns For Any Problems or Questions: Contact Your Physician Skin/Wound Care Infection Signs and Symptoms: Increased Redness, Foul Odor of Wound, Increased Drainage, Skin Itchy or Has a Rash, Increased Swelling, Temperature Above 101 F Operative Area Clean and Dry: Keep Incision Clean/Dry Stitches/Reina/Dermabond: Dermabond, Care of Stitches Bathing Instructions: TIKI Flores DO Apr 16, 2017 8:46 am
[2017-04-16] MEDS ORDERED: HYDR-3816 PO (08:48)
[2017-04-16] MEDS ORDERED: DOCU100C37 PO (08:48)
[2017-04-16] MEDS ORDERED: IBUP-1773 PO (08:48)
[2017-04-16] MEDS ORDERED: FERR-74 PO (08:48)
--- NOTE | 2017-04-16 09:07 | Progress Note-Standard ---
Standard Progress Note Progress Notes/Assess & Plan Date Seen by Provider: Apr 16, 2017 Time Seen by Provider: 08:15 Progress/Assessment & Plan Patient is doing well postop day one from primary low transverse section. She reports lochia is light. Denies nausea and vomiting. Tolerating a regular diet. [place] catheter came out this morning urine was noted to be clear this morning. She does report trouble with pain control. Vital Sign - Last 24 Hours 04/15/17 04/15/17 04/15/17 04/15/17 09:15 09:30 09:45 10:00 Pulse 59 78 81 Resp 16 16 16 B/P (MAP) 137/74 134/76 133/75 O2 Delivery Room Air Room Air Room Air Room Air 04/15/17 04/15/17 04/15/17 04/15/17 10:15 10:30 10:45 11:00 Temp 98.4 Pulse 83 75 Resp 16 18 B/P (MAP) 112/73 139/70 O2 Delivery Room Air Room Air Room Air Room Air 04/15/17 04/15/17 04/15/17 04/15/17 11:15 11:30 11:45 12:00 Pulse 74 75 65 58 Resp 18 18 18 18 B/P (MAP) 150/72 133/69 133/69 121/58 O2 Delivery Room Air Room Air Room Air Room Air 04/15/17 04/15/17 04/15/17 04/15/17 12:15 12:30 12:45 13:00 Temp 98.9 Pulse 60 66 57 54 Resp 18 18 18 18 B/P (MAP) 109/61 104/60 98/52 114/55 Pulse Ox 98 98 98 O2 Delivery Room Air Room Air Room Air Room Air 04/15/17 04/15/17 04/15/17 04/15/17 13:15 13:30 13:45 14:00 Temp 98.6 Pulse 60 67 65 52 Resp 18 18 18 18 B/P (MAP) 118/58 111/59 128/69 118/71 O2 Delivery Room Air Room Air Room Air Room Air 04/15/17 04/15/17 04/15/17 04/15/17 14:15 14:30 14:45 15:00 Pulse 52 52 60 49 Resp 18 18 18 18 B/P (MAP) 103/56 95/50 100/58 91/51 O2 Delivery Room Air Room Air Room Air Room Air 04/15/17 04/15/17 04/15/17 04/15/17 15:15 15:30 15:45 16:00 Pulse 62 61 65 57 Resp 18 18 18 18 B/P (MAP) 93/52 106/65 108/58 122/64 O2 Delivery Room Air Room Air Room Air Room Air 04/15/17 04/15/17 04/15/17 04/15/17 16:15 16:30 16:45 17:00 Temp 98.3 Pulse 47 56 68 Resp 18 18 18 B/P (MAP) 117/59 116/64 116/66 O2 Delivery Room Air Room Air Room Air Room Air 04/15/17 04/15/17 04/15/17 04/15/17 17:15 17:30 17:45 18:00 Pulse 75 92 73 74 Resp 18 18 18 18 B/P (MAP) 114/66 145/62 124/72 128/63 O2 Delivery Room Air Room Air Room Air Room Air 04/15/17 04/15/17 04/15/17 04/15/17 18:15 18:30 18:45 19:00 Temp 99.0 Pulse 63 75 81 60 Resp 18 18 18 18 B/P (MAP) 128/64 133/60 124/63 115/59 O2 Delivery Room Air Room Air Room Air Room Air 04/15/17 04/15/17 04/15/17 04/15/17 19:15 19:30 19:45 20:00 Pulse 73 65 92 75 Resp 18 18 18 18 B/P (MAP) 118/81 127/80 129/79 126/81 O2 Delivery Room Air Room Air Room Air Room Air 04/15/17 04/15/17 04/15/17 04/15/17 20:15 20:30 20:37 20:40 Pulse 81 67 78 68 Resp 18 18 18 18 B/P (MAP) 125/78 155/72 141/70 124/70 Pulse Ox 92 O2 Delivery Room Air Room Air Room Air Room Air 04/15/17 04/15/17 04/15/17 04/15/17 20:43 20:46 20:49 20:52 Temp 98.4 Pulse 64 82 61 73 Resp 18 18 18 18 B/P (MAP) 116/67 116/69 108/62 124/63 Pulse Ox 98 98 98 O2 Delivery Room Air Room Air Room Air Room Air 04/15/17 04/15/17 04/15/17 04/15/17 20:55 20:58 21:01 21:04 Pulse 79 73 68 53 Resp 18 18 18 18 B/P (MAP) 127/63 131/53 110/56 104/51 Pulse Ox 98 91 O2 Delivery Room Air Room Air Room Air Room Air 04/15/17 04/15/17 04/15/17 04/15/17 21:07 21:30 21:45 22:00 Pulse 68 67 73 79 Resp 18 18 18 18 B/P (MAP) 108/53 Pulse Ox 95 98 97 100 O2 Delivery Room Air Room Air Room Air Non Rebreather O2 Flow Rate 15.00 04/15/17 04/16/17 04/16/17 04/16/17 22:15 00:15 00:45 04:00 Temp 98.2 97.0 98.4 Pulse 66 56 66 Resp 17 B/P (MAP) 116/62 124/71 Pulse Ox 99 98 97 O2 Delivery Non Rebreather Room Air Room Air Room Air O2 Flow Rate 15.00 04/16/17 04/16/17 04:20 08:05 Temp 98.4 97.6 Pulse 66 78 Resp 18 16 B/P (MAP) 124/71 129/87 Pulse Ox 97 97 O2 Delivery Room Air Room Air Intake and Output 04/16/17 04/16/17 04/17/17 15:00 23:00 07:00 Intake Total 750 ml Output Total 800 ml Balance -50 ml Incision: Clean, dry, intact Laboratory Tests Test 04/16/17 05:30 Range/Units White Blood Count 11.6 H 4.3-11.0 10^3/uL Red Blood Count 2.83 L 4.35-5.85 10^6/uL Hemoglobin 9.1 #L 11.5-16.0 G/DL Hematocrit 27 L 35-52 % Mean Corpuscular Volume 97 80-99 FL Mean Corpuscular Hemoglobin 32 25-34 PG Mean Corpuscular Hemoglobin Concent 33 32-36 G/DL Red Cell Distribution Width 14.1 10.0-14.5 % Platelet Count 116 L 130-400 10^3/uL Mean Platelet Volume 11.3 H 7.4-10.4 FL Neutrophils (%) (Auto) 82 H 42-75 % Lymphocytes (%) (Auto) 9 L 12-44 % Monocytes (%) (Auto) 8 0-12 % Eosinophils (%) (Auto) 1 0-10 % Basophils (%) (Auto) 0 0-10 % Neutrophils # (Auto) 9.5 H 1.8-7.8 X 10^3 Lymphocytes # (Auto) 1.1 1.0-4.0 X 10^3 Monocytes # (Auto) 0.9 0.0-1.0 X 10^3 Eosinophils # (Auto) 0.1 0.0-0.3 10^3/uL Basophils # (Auto) 0.0 0.0-0.1 10^3/uL Diagnosis: Postop day 1 primary low transverse section Acute blood loss anemia Failure to descend Advanced maternal age Plan: Replace iron Hydrocodone increased to 7.5 Encourage breast-feeding, and ambulation Anticipate discharge tomorrow TIKI WALL DO Apr 16, 2017 9:07 am
--- NOTE | 2017-04-16 10:27 | Anesthesia-Regional Post-Op ---
Regional Patient Condition Mental Status: Alert, Oriented x3 Circulation: Same as Pre-Op Headache: Absent Sensation: Full Recovery Motor Block: Absent Post Op Complications Complications None Follow Up Care/Instructions Patient Instructions None needed. Anesthesia/Patient Condition Patient is doing well, no complaints, stable vital signs, no apparent adverse anesthesia problems. No complications reported per nursing. ORQUIDEA HAIDER CRNA Apr 16, 2017 10:27
[2017-04-16] MEDS: HYDROcodone/APAP 7.5 MG/325 MG (LORTAB, LORCET PLUS) TABLET PO PRN ×3 (11:02→19:45)
[2017-04-17] MEDS: IBUPROFEN 600 MG (MOTRIN) TAB PO SCH ×9 (00:05→23:49)
[2017-04-17] MEDS: DOCUSATE SODIUM 100 MG (COLACE) CAP PO SCH ×3 (00:05→22:12)
[2017-04-17] MEDS: HYDROcodone/APAP 7.5 MG/325 MG (LORTAB, LORCET PLUS) TABLET PO PRN ×6 (00:06→22:12)
[2017-04-17 04:30] VITALS: BP 111/68
--- NOTE | 2017-04-17 10:46 | Postpartum Progress Note ---
Post Op Post-operative Day #2 s/p PLTCS. She is doing ok but having incisional pain with ambulation. Some improvement since yesterday. Baby has had some issues and hyperbilirubinemia. Subjective: Patient is without complaints. Ambulating, voiding after watkins removed. Tolerating a regular diet without nausea or vomiting. Normal lochia. Pain is well controlled with oral pain medications. Passing flatus. breast feeding. Objective: Vital Sign - Last 12Hours 04/17/17 04:30 Temp 98.1 Pulse 68 Resp 18 B/P (MAP) 111/68 Pulse Ox 96 O2 Delivery Room Air Physical Exam: General - Alert and oriented, no apparent distress Abdomen - Soft, appropriately tender to palpation, non-distended, fundus firm at umbilicus Incision - clean, dry and intact; no erythema or induration, no drainage Extremities - no edema, negative Ryder's bilaterally Assessment: 1. post-operative day # 2, status post PLTCS. Recovering well, hemodynamically stable Plan: Routine post-operative care. Encourage breast feeding. Encourage ambulation. VTE prophylaxis: SCDs. Ferrous sulfate supplementation. Plan for discharge tomorrow. Vitals - Labs Vital Signs - I&O Vital Signs Date Time Temp Pulse Resp B/P (MAP) Pulse Ox O2 Delivery O2 Flow Rate FiO2 04/17/17 04:30 98.1 68 18 111/68 96 Room Air 04/16/17 19:45 97.9 64 18 115/65 95 Room Air 04/16/17 16:00 97.9 71 14 113/64 95 Room Air 04/16/17 11:53 97.4 66 16 120/78 97 Room Air ARIS SU DO Apr 17, 2017 10:46
[2017-04-17 12:35] VITALS: BP 118/72
[2017-04-17] MEDS: CATHETER FLUSH 10 ML SYR IV SCH ×3 (14:47→14:50)
[2017-04-17 17:26] VITALS: BP 121/83
[2017-04-17 20:20] VITALS: BP 116/68
[2017-04-18] MEDS: HYDROcodone/APAP 7.5 MG/325 MG (LORTAB, LORCET PLUS) TABLET PO PRN ×2 (03:30→09:32)
[2017-04-18] MEDS: IBUPROFEN 600 MG (MOTRIN) TAB PO SCH ×2 (06:09→14:00)
[2017-04-18 06:10] VITALS: BP 114/70
[2017-04-18 09:30] VITALS: BP 130/78
[2017-04-18] MEDS: DOCUSATE SODIUM 100 MG (COLACE) CAP PO SCH (09:32)
--- NOTE | 2017-04-18 11:28 | Postpartum Progress Note ---
Note Note Day # 3 s/p PLTCS Subjective: Patient is without complaints. Ambulating, voiding. Tolerating a regular diet without nausea or vomiting. Normal lochia. Pain is well controlled with oral pain medications. breast feeding. Baby feeding better, will dc or dc to parent room Objective: Vital Sign - Last 12Hours 04/18/17 06:10 Temp 98.4 Pulse 56 Resp 18 B/P (MAP) 114/70 Pulse Ox 96 O2 Delivery Room Air Physical Exam: General - Alert and oriented, no apparent distress Abdomen - Soft, appropriately tender to palpation, non-distended, fundus firm at umbilicus Extremities - no edema, negative Ryder's bilaterally Inc C/D/O Assessment: 1. post- day # 3 s/p PLTCS Recovering well, hemodynamically stable 2. Acute blood loss anemia [ Plan: Routine care. Encourage breast feeding. Encourage ambulation. Ferrous sulfate supplementation. Plan for discharge today or to parent room Vitals - Labs Vital Signs - I&O Vital Signs Date Time Temp Pulse Resp B/P (MAP) Pulse Ox O2 Delivery O2 Flow Rate FiO2 04/18/17 06:10 98.4 56 18 114/70 96 Room Air 04/17/17 20:20 98.8 71 18 116/68 95 Room Air 04/17/17 17:26 98.2 72 20 121/83 99 Room Air 04/17/17 12:35 98.4 62 18 118/72 96 Room Air 15.00 15.00 ARIS SU DO Apr 18, 2017 11:28
[2017-04-18 14:00] VITALS: BP 128/71
--- NOTE | 2017-04-27 09:58 | DISCHARGE SUMMARY ---
DATE OF SERVICE: ADMISSION DIAGNOSES: 1. A 41-year-old G3, P2 at 38 weeks and 1-day gestation. 2. Advanced maternal age. 3. Abnormal clot screen. 4. Oligohydramnios. 5. Group B strep positive. DISCHARGE DIAGNOSES: 1. A 41-year-old G3, P2 at 38 weeks and 1-day gestation. 2. Advanced maternal age. 3. Abnormal clot screen. 4. Oligohydramnios. 5. Group B strep positive. 6. Postop day 3 from primary low transverse casserian section. 7. Acute blood loss anemia. ATTENDING PHYSICIAN: Tiki Wall DO, was covered by Shoshana Zacarias DO SERVICE: Women's services. HOSPITAL COURSE: Please see admission H and P from 04/15/2017, for complete details pertaining to the patient's admission, indications for induction and physical examination at time of admission. Please see operative report from 04/16/2017, for complete details pertaining to the patient's operative procedure in detail as well as indications of procedure. The postoperative course for this patient was fairly routine. On postop day 1, she was doing well, ambulating and voiding freely. She was started on iron, 325 mg ferrous sulfate 1 p.o. daily. She was having some difficulties with pain control and increased on her Lortab to 7.5 dose. Lochia was light. On postop day 2, the patient continued improve well, but still having some incisional pain with ambulation. She did notice some improvement from the day before after increasing the Lortab dosage. Her vital signs remained stable. Incision remained clean, dry and intact. She was ambulating and voiding freely at that point. Due to some difficulties continued with pain control, they decided to keep the patient on the postop day 3. The was feeding better. She continued to breastfeed well on postop day 3. Incision was clean dry and intact. Decision was made to discharge the patient home on postop day 3 due to clinical stability. She was given routine postoperative and precautions and told her to return to care if any of these things should occur. All of her questions were answered pertaining to these instructions. DISCHARGE MEDICATIONS: She was sent home on following medications including Colace 100 mg 1 p.o. b.i.d. p.r.n. as needed for constipation #40, ferrous sulfate 325 mg 1 p.o. daily #60, Lortab 7.5/325 one p.o. q. 4 to 6 hours p.r.n. as needed for pain #50, Motrin 600 mg 1 p.o. q. 6 hours p.r.n. as needed for cramping #80. She told to continue her vitamins. All the patient's questions were answered pertaining to administration of these medications at home and the patient's discharge was facilitated at that point without any further difficulties. Job ID: [id number] DocumentID: [id number] Dictated Date: 04/26/2017 09:18:35 Technology Education Teacher Date: 04/27/2017 08:21:18 Dictated By: TIKI WALL DO
== END 2017-04-18 15:00 | disposition home or self-care (01) | DRG 765 ==
LOC: LDRP 18:45
PROVIDERS: ADMIT Obstetrics & Gynecology; ATTEND Obstetrics & Gynecology
PROC: 10D00Z1 Extraction of Products of Conception, Low, Open Approach (ICD-10-PCS; principal; 2017-04-15 22:17)
DX: O99.824 Streptococcus B carrier state complicating childbirth (principal); O41.03X0 Oligohydramnios, third trimester, not applicable or unspecified; O32.4XX0 Maternal care for high head at term, not applicable or unspecified; O76 Abnormality in fetal heart rate and rhythm complicating labor and delivery; O90.81 Anemia of the puerperium; D62 Acute posthemorrhagic anemia; Z3A.38 38 weeks gestation of pregnancy; Z37.0 Single live birth
CPT/HCPCS: 36415; 85025; 86850; 86900; 86901; 88307; 94664

== ENCOUNTER → 2019-07-31 | Outpatient (CLI) | payer OTHER ==
[~2019-07-31] MED LIST: B6/F1TAB PO; DOCU100C37 PO; FERR325T18 PO; HYDR-34 PO; IBUP-1773 PO; PREN-142 PO; UNISOM25 M1 PO
--- NOTE | 2019-07-31 09:55 | Diagnostic Imaging Report ---
INDICATION: Routine screening. No prior mammograms are available for comparison. This is a baseline study. 2-D and 3-D bilateral screening mammography was performed with CAD. Both breasts are heterogeneously dense, limiting the sensitivity of mammography. No mass or malignant-appearing microcalcifications are seen. Axillae are unremarkable. IMPRESSION: BI-RADS Category 1 No mammographic features suspicious for malignancy are identified. ACR BI-RADS Category 1: Negative. Result letter will be mailed to the patient. Note: At least 10% of breast cancer is not imaged by mammography. Dictated by: Dictated on workstation # [id number]
== END ==
LOC: RAD 07:15
PROVIDERS: ATTEND Internal Medicine
DX: Z12.31 Encounter for screening mammogram for malignant neoplasm of breast (principal)
CPT/HCPCS: 77067

== ENCOUNTER → 2020-09-26 | Outpatient (CLI) | payer OTHER ==
[2020-09-26 16:11] LABS: HEMOGLOBIN 12.8 g/dL (11.5-16.0); MEAN PLATELET VOLUME 10.9 fL (9.0-12.2)
[2020-09-26 16:16] LABS: BILIRUBIN,URINE NEGATIVE (NEGATIVE); CLARITY,URINE CLEAR; COLOR,URINE YELLOW; GLUCOSE, URINE (UA) NEGATIVE (NEGATIVE); KETONES,URINE NEGATIVE (NEGATIVE); LEUKOCYTE ESTERASE ,URINE TRACE (NEGATIVE); NITRITE,URINE NEGATIVE (NEGATIVE); PH,URINE 6.5 (5-9); PROTEIN,URINE NEGATIVE (NEGATIVE)
[2020-09-26 16:25] LABS: BACTERIA,URINE FEW /HPF
[2020-09-26 16:27] LABS: ALBUMIN 4.5 GM/DL (3.2-4.5); CHLORIDE 105 MMOL/L (98-107); POTASSIUM 3.9 MMOL/L (3.6-5.0); SODIUM 140 MMOL/L (135-145)
[2020-09-26 16:28] LABS: CALCIUM 9.2 MG/DL (8.5-10.1)
[2020-09-26 16:30] LABS: GLUCOSE 101 MG/DL (70-105); TOTAL PROTEIN 7.7 GM/DL (6.4-8.2)
[2020-09-26 16:31] LABS: BILIRUBIN,TOTAL 0.3 MG/DL (0.1-1.0); CARBON DIOXIDE 25 MMOL/L (21-32)
[2020-09-26 16:33] LABS: ALKALINE PHOSPHATASE 52 U/L (40-136); GFR ESTIMATED > 60
[2020-09-26 16:34] LABS: BUN/CREATININE RATIO 13
[2020-09-26 16:36] LABS: ALANINE AMINOTRANSFERASE 15 U/L (0-55)
--- NOTE | 2020-09-26 16:57 | Diagnostic Imaging Report ---
INDICATION: Back pain AP and lateral views of the lumbar spine are obtained. The lumbar vertebrae are normal in height and alignment. There is no fracture or subluxation or compression deformity. Disc spaces are normal in height throughout. The facets are in good alignment. There is no spondylolysis or spondylolisthesis. IMPRESSION: Negative lumbar spine series. Dictated by: Dictated on workstation # [id number]
--- NOTE | 2020-09-26 16:57 | Diagnostic Imaging Report ---
INDICATION: Pelvic pain. TECHNIQUE: AP pelvis obtained at 04:44 p.m. FINDINGS: No fracture or acute bony abnormality is seen. Joint spaces are unremarkable. IMPRESSION: Negative pelvis. Dictated by: Dictated on workstation # [id number]
--- NOTE | 2020-09-26 16:57 | Diagnostic Imaging Report ---
INDICATION: Dyspnea Frontal chest obtained at 0439 p.m. Heart and mediastinal silhouette are normal in appearance. The lungs are clear. There is no pneumothorax or pleural fluid. IMPRESSION: Negative chest. Dictated by: Dictated on workstation # [id number]
--- NOTE | 2020-09-26 17:43 | Diagnostic Imaging Report ---
EXAMINATION: Cervical spine radiographs, 3 views. COMPARISON: MR cervical spine November 29, 2007. HISTORY: 45-year-old female, neck pain. FINDINGS: The lateral masses of C1 are normally aligned relative to C2. There is a mild reversal of the normal cervical lordosis. There is no particularly prominent prevertebral soft tissue swelling. Additional alignment of the cervical spine is unremarkable. The cervical disc heights are well preserved. There is no identified acute fracture. The uncovertebral joints are unremarkable. IMPRESSION: 1. Reversal of the normal cervical lordosis. 2. Additional radiographic evaluation of the cervical spine is unremarkable. Dictated by: Dictated on workstation # [id number]
== END ==
LOC: RAD 15:56
PROVIDERS: ATTEND Internal Medicine
DX: M54.2 Cervicalgia (principal); R06.00 Dyspnea, unspecified; R07.9 Chest pain, unspecified; R10.9 Unspecified abdominal pain; R10.2 Pelvic and perineal pain
CPT/HCPCS: 36415; 71045; 72040; 72100; 72170; 80053; 81000; 84484; 85027; 85379; 85652; 86141; 87088

== ENCOUNTER → 2020-09-26 | Outpatient (CLI) | payer OTHER ==
--- NOTE | 2020-09-26 10:57 | Diagnostic Imaging Report ---
PROCEDURE: Pelvic comp/transvaginal sonogram. TECHNIQUE: Complete transabdominal and transvaginal pelvic ultrasound was performed. In addition, limited pelvic Doppler was performed. INDICATION: Vaginal bleeding. The uterus is anteverted measuring 9.6 x 4.9 x 7.1 cm. Endometrium is 6 cm in thickness. No myometrial mass is detected. Right ovary measures 6.0 x 5.0 x 6.4 cm. Left ovary measures 2.5 x 4.6 x 2.4 cm. The left ovary contains small follicles and does demonstrate blood flow. There is a mass in the region of the right ovary. This does appear to be solid. There is internal vascularity. IMPRESSION: Enlarged right ovary which contains a solid mass with central vascularity. Ovarian neoplasm cannot be entirely excluded. Additional imaging would be recommended such as MRI of the pelvis. No other abnormalities detected. Dictated by: Dictated on workstation # [id number]
--- NOTE | 2020-09-26 11:20 | Diagnostic Imaging Report ---
INDICATION: Routine screening. Comparison is made prior mammogram 07/31/2019. 2-D and 3-D bilateral screening mammography was performed with CAD. Both breasts are heterogeneously dense, limiting the sensitivity of mammography. The parenchymal pattern is stable. No mass or malignant appearing microcalcifications are seen. Axillae are unremarkable. IMPRESSION: BI-RADS Category 1 No mammographic features suspicious for malignancy are identified. ACR BI-RADS Category 1: Negative. Result letter will be mailed to the patient. Note: At least 10% of breast cancer is not imaged by mammography. Dictated by: Dictated on workstation # [id number]
== END ==
LOC: RAD 07:30
PROVIDERS: ATTEND Obstetrics & Gynecology
DX: Z12.31 Encounter for screening mammogram for malignant neoplasm of breast (principal); N94.5 Secondary dysmenorrhea; N83.9 Noninflammatory disorder of ovary, fallopian tube and broad ligament, unspecified
CPT/HCPCS: 76830; 76856; 77063; 77067

== ENCOUNTER → 2020-09-27 | Outpatient (CLI) | payer OTHER ==
[~2020-09-27] MED LIST changes: +CATHETER FLUSH 10 ML SYR IV PRN; +HOLD METFORMIN - RECEIVED CONTRAST 20 ML VIAL IV SCH; +IOHEXOL 350 MG/ML 100 ML (OMNIPAQUE 350) VIAL IV ONE; +NS 100 ML (IVPB) BAG IV ONE
[2020-09-27 13:24] LABS: HEMOGLOBIN 13.2 g/dL (11.5-16.0)
--- NOTE | 2020-09-27 14:11 | Diagnostic Imaging Report ---
PROCEDURE: CT abdomen and pelvis with and without contrast. TECHNIQUE: Precontrast acquisitions were acquired through the abdomen and pelvis. Multiple contiguous axial images were obtained through the abdomen and pelvis after the administration of intravenous contrast. Auto Exposure Controls were utilized during the CT exam to meet ALARA standards for radiation dose reduction. INDICATION: Right lower quadrant pain. COMPARISON: None available. FINDINGS: Lung bases are clear. No pericardial or pleural effusion. No free intraperitoneal air or fluid. The liver is normal with the exception of a subcentimeter cyst in the left hepatic lobe, segment 3. The gallbladder, spleen and pancreas are normal. No adrenal mass. Kidneys enhance symmetrically without mass lesion or obstruction. No renal or ureteral stones. Urinary bladder is normally filled. There is an enhancing exophytic mass on the posterior aspect of the lower uterine body measuring 5.1 x 6.0 cm most compatible with subserosal fibroid. This follows the enhancement pattern of the uterine myometrium, further supporting the probability of a fibroid. No adnexal masses appreciated. The stomach is partially filled with fluid and has no wall thickening. No dilated loops of bowel to indicate bowel obstruction. No pericolonic inflammatory change. Appendix is normal. No abdominal or pelvic lymphadenopathy. Normal caliber abdominal aorta. Normal regional skeleton. IMPRESSION: 1. No acute obstructive or inflammatory process. Specifically, the appendix is normal. 2. No urinary tract calculi. 3. Exophytic circumscribed mass in posterior lower uterine segment is most likely a subserosal fibroid that measures 5 x 6 cm. If hysteroscopy is not performed, a follow-up MRI of the pelvis without and with IV contrast in 3-6 months could be performed to ensure stability and exclude the low probability of neoplasm. Report was given to Dr. Morillo at 02:00 p.m. on 09/27/2020. Dictated by: Dictated on workstation # [id number]
== END ==
LOC: LAB 12:55
PROVIDERS: ATTEND Obstetrics & Gynecology
DX: R19.00 Intra-abdominal and pelvic swelling, mass and lump, unspecified site (principal); R10.31 Right lower quadrant pain
CPT/HCPCS: 36415; 74178; 83655; 85014; 85018

== ENCOUNTER 2020-10-21 05:39 | Outpatient (CLI) | payer OTHER ==
[~2020-10-21] VITALS: Ht 167.7 cm; Wt 75.9 kg
[~2020-10-21 05:39] MED LIST changes: -CATHETER FLUSH 10 ML SYR IV PRN; -HOLD METFORMIN - RECEIVED CONTRAST 20 ML VIAL IV SCH; -IOHEXOL 350 MG/ML 100 ML (OMNIPAQUE 350) VIAL IV ONE; -NS 100 ML (IVPB) BAG IV ONE
== END 2020-10-21 14:37 | disposition home or self-care (01) ==
LOC: PREOP 05:39 → EDSTATUS 13:00 → PREOP 14:37
PROVIDERS: ATTEND Obstetrics & Gynecology
DX: Z01.818 Encounter for other preprocedural examination (principal)

== ENCOUNTER 2020-10-28 06:22 | Day surgery (SDC) | payer OTHER ==
[2020-10-28] VITALS (12 sets, daily range): BP systolic 107–135; BP diastolic 55–84
[~2020-10-28] VITALS: Ht 167.7 cm; Wt 75.9 kg
[2020-10-28] MEDS ORDERED: LACTATED RINGERS 1,000 ML IV ONE (06:30)
[2020-10-28] MEDS ORDERED: metroNIDAZOLE 500MG/100ML IVPB 100 ML IV ONE (06:30)
[2020-10-28] MEDS ORDERED: ceFAZolin 2 GM IV Premixed 50 ML IV ONE (06:30)
[2020-10-28] MEDS ORDERED: LACTATED RINGERS 1,000 ML IV PRN (06:30)
[2020-10-28] MEDS ORDERED: ONDANSETRON 4 MG/2 ML (SDV) Z0FRAN ONE ×2 (06:43→06:59)
[2020-10-28] MEDS ORDERED: LIDOCAINE PF 2% 5 ML (XYLOCAINE) VIAL ONE (06:43)
[2020-10-28] MEDS ORDERED: NEOSTIGMINE 3 MG/3 ML VIAL ONE (06:43)
[2020-10-28] MEDS ORDERED: ROCURONIUM 10 MG/ML 5 ML SYRINGE IV ONE (06:43)
[2020-10-28] MEDS ORDERED: proPOfol 200 MG/20 ML (DIPRIVAN) VIAL IV ONE (06:43)
[2020-10-28] MEDS ORDERED: SEVOFLURANE (ULTANE) 15 ML INHAL SOLN ONE ×2 (06:43→08:46)
[2020-10-28] MEDS ORDERED: GLYCOPYRROLATE 0.2 MG/ML (ROBINUL) 2 ML VIAL ONE (06:43)
[2020-10-28] MEDS ORDERED: MIDAZOLAM 2 MG/2 ML (VERSED) VIAL ONE (06:44)
[2020-10-28] MEDS ORDERED: fentaNYL INJ 100 MCG/2 ML AMP ONE (06:44)
[2020-10-28] MEDS ORDERED: CATHETER FLUSH 10 ML SYR IV PRN (06:45)
[2020-10-28] MEDS ORDERED: BUPIVACAINE 0.25% 30 ML (SENSORCAINE) VIAL ONE (06:59)
[2020-10-28] MEDS ORDERED: FAMOTIDINE 20MG/2ML IV (PEPCID) ONE (07:00)
--- NOTE | 2020-10-28 07:04 | Progress Note-Pre Operative ---
Pre-Operative Progress Note H&P Reviewed The H&P was reviewed, patient examined and no changes noted. Date Seen by Provider: Oct 28, 2020 Time Seen by Provider: 07:00 Date H&P Reviewed: Oct 28, 2020 Time H&P Reviewed: 07:00 Pre-Operative Diagnosis: Pelvic pain, Fibroid uterus TIKI WALL DO Oct 28, 2020 07:04
--- NOTE | 2020-10-28 07:10 | Discharge Inst-Women's Service ---
Discharge Inst-Women's Serv Depart Medication/Instructions New, Converted or Re-Newed RX: RX on Chart Problems Reviewed?: Yes Consults/Follow Up Additional Follow Up: Yes Activity Activity: Activity as Tolerated Driving Instructions: No Driving for 1 Week NO SMOKING: NO SMOKING Nothing Inside Vagina: No Douching, No [place], No Tampons Diet Discharge Diet: No Restrictions Symptoms to Report to : Bleeding Excessive, Pain Increased, Fever Over 101 Degrees F, Vaginal Bleeding Increase, Questions/Concerns For Any Problems or Questions: Contact Your Physician Skin/Wound Care Infection Signs and Symptoms: Increased Redness, Foul Odor of Wound, Increased Drainage, Skin Itchy or Has a Rash, Increased Swelling, Temperature Above 101 F Operative Area Clean and Dry: Keep Incision Clean/Dry Stitches/[place]/Dermabond: Dermabond, Care of Stitches Bathing Instructions: TIKI Flores DO Oct 28, 2020 07:09
[2020-10-28 07:11] LABS: BASOPHILS # (AUTO) 0.1 10^3/uL (0.0-0.1); BASOPHILS % (AUTO) 2 % (0-10); EOSINOPHILS # (AUTO) 0.1 10^3/uL (0.0-0.3); EOSINOPHILS % (AUTO) 2 % (0-10); HEMATOCRIT 38 % (35-52); HEMOGLOBIN 12.6 g/dL (11.5-16.0); LYMPHOCYTES # (AUTO) 1.6 10^3/uL (1.0-4.0); LYMPHOCYTES % (AUTO) 34 % (12-44); MEAN CORPUSCULAR HEMOGLOBIN 32 pg (25-34); MEAN CORPUSCULAR HGB CONC 34 g/dL (32-36); MEAN CORPUSCULAR VOLUME 94 fL (80-99); MEAN PLATELET VOLUME 11.3 fL (9.0-12.2); MONOCYTES # (AUTO) 0.3 10^3/uL (0.0-1.0); MONOCYTES % (AUTO) 7 % (0-12); NEUTROPHILS # (AUTO) 2.6 10^3/uL (1.8-7.8); NEUTROPHILS % (AUTO) 56 % (42-75); PLATELET COUNT 186 10^3/uL (130-400); WHITE BLOOD COUNT 4.6 10^3/uL (4.3-11.0)
[2020-10-28] MEDS ORDERED: IBUP-844 PO (07:11)
[2020-10-28] MEDS ORDERED: SMT80CT PO (07:11)
[2020-10-28] MEDS ORDERED: HYDR-34 PO (07:11)
[2020-10-28] MEDS ORDERED: DCS100C PO (07:12)
[2020-10-28] MEDS ORDERED: morphine INJ 10 MG/ML 1ML (SYR OR VIAL) IVP ONE (07:15)
[2020-10-28] MEDS ORDERED: FAMOTIDINE 20MG/2ML IV (PEPCID) IV ONE (07:15)
[2020-10-28] MEDS ORDERED: SIMETHICONE 80 MG (MYLICON) CHEW PO PRN (07:15)
[2020-10-28] MEDS ORDERED: ONDANSETRON 4 MG/2 ML (SDV) Z0FRAN IV PRN (07:15)
[2020-10-28] MEDS ORDERED: ANTACID SUSP 30 ML UDC (MYLANTA) PO PRN (07:15)
[2020-10-28] MEDS ORDERED: ZOLPIDEM 5 MG (AMBIEN) TAB PO PRN (07:15)
[2020-10-28] MEDS ORDERED: HYDROcodone/APAP 7.5 MG/325 MG (LORTAB, LORCET PLUS) TABLET PO PRN (07:15)
[2020-10-28] MEDS ORDERED: DOCUSATE SODIUM 100 MG (COLACE) CAP PO PRN (07:15)
[2020-10-28] MEDS ORDERED: CHLORASEPTIC LOZENGE MM PRN (07:15)
[2020-10-28] MEDS ORDERED: ONDANSETRON 4 MG/2 ML (SDV) Z0FRAN IV ONE (07:15)
[2020-10-28] MEDS ORDERED: HYDROmorphone 2 MG/ML VIAL (DILAUDID) IV ONE (07:15)
[2020-10-28] MEDS ORDERED: ONDANSETRON 4 MG/2 ML (SDV) Z0FRAN IVP PRN (07:15)
[2020-10-28] MEDS: LACTATED RINGERS 1,000 ML IV SCH ×2 (07:45→10:21)
[2020-10-28] MEDS ORDERED: morphine INJ 10 MG/ML 1ML (SYR OR VIAL) ONE (09:18)
[2020-10-28] MEDS ORDERED: KETOROLAC 30 MG/ML VIAL ONE (09:24)
[2020-10-28] MEDS: KETOROLAC 30 MG/ML VIAL IV PRN ×2 (09:34→17:42)
[2020-10-28] MEDS ORDERED: MEPERIDINE (DEMEROL) INJ 50 MG/ML ONE (09:34)
[2020-10-28] MEDS ORDERED: MEPERIDINE (DEMEROL) INJ 50 MG/ML IVP ONE (10:00)
[2020-10-28] MEDS ORDERED: HYDROcodone/APAP 7.5 MG/325 MG (LORTAB, LORCET PLUS) TABLET PO ONE (10:12)
--- NOTE | 2020-10-28 11:54 | Anesthesia-General Post-Op ---
General Patient Condition Mental Status/LOC: Same as Preop Cardiovascular: Satisfactory Nausea/Vomiting: Absent Respiratory: Satisfactory Pain: Controlled Complications: Absent Post Op Complications Complications None Follow Up Care/Instructions Patient Instructions None needed. Anesthesia/Patient Condition Patient Condition Patient was doing well in PACU, shivering but demerol 12.5 mg ordered, stable vital signs, no apparent adverse anesthesia problems. KIKO ERAZO DO Oct 28, 2020 11:54
--- NOTE | 2020-10-28 19:19 | OPERATIVE REPORT ---
DATE OF SERVICE: PREOPERATIVE DIAGNOSES: 1. A 45-year-old female with acute on chronic pelvic pain. 2. Fibroid uterus. POSTOPERATIVE DIAGNOSES: 1. A 45-year-old female with acute on chronic pelvic pain. 2. Fibroid uterus. PROCEDURE: Robotic-assisted total laparoscopic hysterectomy with bilateral salpingectomy, total weight of specimen greater than 300 grams. SURGEON: Paolo Wall DO CROSS CUT SAW OPERATOR: Page Lainez DNP, who was necessary for manipulation and retraction throughout the procedure. ANESTHESIA: General endotracheal. ESTIMATED BLOOD LOSS: Minimal. URINE OUTPUT: 50 mL clear at the end of procedure. FLUIDS: 1500 mL lactated Ringer's solution. FINDINGS: A bulky enlarged uterus with a very large posterior uterine wall pedunculated fibroid. A total weight of specimen 328 grams. Grossly normal appearing bilateral ovaries. SPECIMEN SENT: Uterus, bilateral fallopian tubes. INDICATIONS FOR PROCEDURE: This 45-year-old female is a patient who had sought care in my office for annual well woman exam. She had enlargement of what felt like the right adnexa on evaluation and ultrasound was ordered, which showed a solid mass, which they believe was adnexal in nature; however, followup CT revealed no pelvic lymphadenopathy, no ascites and that the mass was actually coming off the posterior wall of the uterus, suspicious for a pedunculated fibroid. The patient had been having pelvic pain and now neurologic pain shooting down the legs from this, also some interruptions in her bowel movements. Due to ongoing issues with this, I discussed with the patient conservative measures versus moving forward with more definitive measures. She was very concerned with this acute pain and did not want to wait a long conservative time frame in order to address the fibroid. Therefore, she was opting to proceed with hysterectomy. Risks of procedure were discussed with the patient in detail including risk of bleeding, infection, damage to surrounding structures including, but not limited to bowel, bladder, ureter, kidneys, possible need for reoperation, possible recovery timeframe, risk from anesthesia and even . Everything was discussed with the patient in detail, consent was obtained in the preoperative area and the patient was taken to the operating room. OPERATIVE REPORT IN DETAIL: Once in the operating room, anesthesia was found to be adequate. She was placed in dorsal lithotomy position, prepped and draped in normal sterile fashion. Timeout was performed. Anesthesia is tested. Greenwood catheter was placed using sterile technique. A weighted speculum inserted to the patient's vagina. Right angle retractor was used to visualize the cervix, which was grasped at 12 o'clock position using a long Allis clamp and 0 Vicryl suture was then placed anterior lip of the cervix and the Allis clamp was removed. The suture was then used as my retraction on the cervix. I then gently sound the uterine cavity, depth was found to be 8 cm. I selected 8 cm Amparo uterine manipulator and 4 cm colpotomy ring, advanced the manipulator into the uterus and advanced colpotomy around the vaginal cuff, after which I removed all the instruments from the patient's vagina. I then performed a change of gloves and took my attention to the abdomen where infraumbilically I infiltrated this area using 0.25% Marcaine to make an 8 mm incision with a knife and directed Veress needle through the incision until intraperitoneal placement was confirmed using saline drop test. Insufflation was proceeded with using CO2 gas and opening pressure 4 mmHg was noted. I proceeded to maximum pressure of 15 mmHg, at which point I removed the Veress needle and introduced an 8 mm blunt laparoscopic da Derrick camera trocar. Once this was in place, I am able to confirm intraperitoneal placement using da Derrick laparoscope. There was no evidence of damage upon my entry. The upper abdominal anatomy appears grossly normal. I then had the patient placed in steep Trendelenburg and made visualize all my pelvic anatomy as described in my findings above. I placed two lateral trocars using both 8 mm trocars approximately 8 cm lateral to my infraumbilical trocar placed under direct visualization of laparoscope. Once these trocars were in place, I bring in the da Derrick robot and docked in appropriate fashion placing the vessel sealer in the left hand and monopolar heidy in the right hand. I performed the following dissection bilaterally starting at the uteroovarian ligament, I bipolar cauterized and transected using vessel sealer. I then created a window in the mesosalpinx and took this laterally amputating the fallopian tube from its blood supply using the vessel sealer. I then grasped the round ligament, which I bipolar cauterized and transected using vessel sealer. I then am able to grasp the entire broad ligament, which I bipolar cauterized and transected using vessel sealer down to the level of the lower uterine segment. The anterior leaflet of the broad ligament was taken around the anterior vaginal fornix and posterior leaflets dissection was taken around the posterior vaginal fornix. This allows me to skeletonize the uterine vessels laterally, which I bipolar cauterized and transected using the vessel sealer. I then created a colpotomy at 12 o'clock position using monopolar heidy and took this circumferentially around the vaginal fornix amputating the cervix away from the vagina. The entire specimen was then removed through the vagina. I then proceeded with closing the lateral vaginal apices of the vaginal cuff using 2-0 Vicryl suture in a [id number] fashion colposuspending them to the uterosacral ligaments. I then closed the remainder of the vaginal cuff using 2-0 V-Loc in a running fashion, after which there was no active bleeding noted from any of my dissection planes. I then undocked the da Derrick robot and proceeded with remainder of the case laparoscopically. I again copiously irrigated the pelvis using normal saline. There was no active bleeding noted from any of my dissection planes. I placed Surgiflo hemostatic agent over all my planes of dissection to ensure excellent postoperative hemostasis and have the patient taken out of steep Trendelenburg where I removed the lateral trocars under direct visualization of laparoscope. The infraumbilical trocar was left in place to release insufflation and to introduce 10 mL of 0.25% Marcaine into the peritoneal cavity for postoperative pain management. I then removed this trocar as well. The skin reapproximated using 4-0 Monocryl in interrupted subcuticular stitches. Dermabond was applied to incision and Band-Aids were placed over the incisions as well. Greenwood catheter was left in place. The patient tolerated the procedure well and sent to recovery area in stable condition. Lap and sponge counts were correct at the end of the procedure. Instrument counts correct as well. Two grams of Ancef, 500 mg of Flagyl were given preoperatively for infection prophylaxis. Job ID: [id number] DocumentID: [id number] Dictated Date: 10/28/2020 11:55:39 [employer] Ac[employer] Consultant Date: 10/28/2020 19:18:38 Dictated By: PAOLO WALL DO
[2020-10-28] MEDS ORDERED: IBUPROFEN 600 MG (MOTRIN) TAB PO SCH (23:45)
== END 2020-10-28 17:55 | disposition home or self-care (01) ==
LOC: SDC 06:22 → WS 09:45 → SDC 17:55
PROVIDERS: ATTEND Obstetrics & Gynecology
DX: D25.1 Intramural leiomyoma of uterus (principal); D25.2 Subserosal leiomyoma of uterus; N83.8 Other noninflammatory disorders of ovary, fallopian tube and broad ligament; G89.29 Other chronic pain; J45.909 Unspecified asthma, uncomplicated; Z79.51 Long term (current) use of inhaled steroids
CPT/HCPCS: 36415; 84703; 85025; 86850; 86900; 86901; 87081; 94664

== ENCOUNTER 2021-01-28 18:17 | Emergency (ER) | payer OTHER ==
[~2021-01-28] VITALS: Ht 167.7 cm; Wt 75.9 kg
[~2021-01-28 18:17] MED LIST changes: +DCS100C PO; +IBUP-844 PO; +SMT80CT PO
[2021-01-28] MEDS ORDERED: NITROGLYCERIN 0.4 MG SL TABS BTL 25'S SL PRN (18:45)
[2021-01-28] MEDS ORDERED: ASPIRIN 81 MG CHEW (CHILDREN'S ASA) PO ONE (18:45)
--- NOTE | 2021-01-28 18:54 | ED Chest Pain ---
General Chief Complaint: Cardiac/General Problems Stated Complaint: HIGH BP 128/93 Nursing Triage Note: AMB TO ED REPORTS THAT CHECK TOTALER WAS AT [facility] WHEN SHE FELT LIKE HER HEART WAS RACING AND WAS DIZZY. WENT TO [facility] AND B/P WAS ELEVATED. REPORTS YESTERDAY HAD SORE AREA IN L CHEST . Nursing Sepsis Screen: No Definite Risk Source: patient Exam Limitations: no limitations History of Present Illness Date Seen by Provider: Jan 28, 2021 Time Seen by Provider: 18:35 Initial Comments This 45-year-old young lady presents to the emergency room with concerns about her blood pressure and sensations of racing heart, lightheadedness, soreness in the chest, and pain between her shoulder blades. She noticed some discomfort in her chest last night after working in her pantry. Then today she had an episode of the above symptoms while walking around a local retailer. She checked her blood pressure at the pharmacy and found blood pressures of 156/102 and 128/93. She does not have a history of hypertension. She returned home and sat down and experienced another episode. During this episode she was so lightheaded that it affected her vision. At present she describes a nontender soreness between her shoulder blades. She has felt a fullness in her abdomen but has no relief with bowel movements. Her abdomen is nontender. She had some chest discomfort upon arriving to the ER but now describes only a 3 out of 10 nontender pain between her shoulder blades. She denies any personal history of cardiopulmonary problems. She has never been a smoker. Her father at age 75 of an UT. She took 1 Anacin tablet before coming to the emergency room. Allergies and Home Medications Allergies Coded Allergies: No Known Drug Allergies (Unverified , 04/14/17) Home Medications Docusate Sodium 100 Mg Capsule, 100 MG PO BID PRN for CONSTIPATION-1ST LINE Prescribed by: TIKI WALL on 10/28/20711 Hydrocodone Bit/Acetaminophen 1 Ea Tablet, 2 EA PO Q6H PRN for Pain-See Instructions Prescribed by: TIKI WALL on 10/28/20710 Ibuprofen 600 Mg Tablet, 600 MG PO Q6H Prescribed by: TIKI WALL on 10/28/20710 Simethicone 80 Mg Tab.chew, 40 MG PO TID PRN for INDIGESTION 2ND LINE Prescribed by: TIKI WALL on 3/22/21 0711 Patient Home Medication List Home Medication List Reviewed: Yes Review of Systems Review of Systems Constitutional: no symptoms reported EENTM: No Symptoms Reported Respiratory: No Symptoms Reported Cardiovascular: See HPI Gastrointestinal: See HPI Genitourinary: No Symptoms Reported Musculoskeletal: see HPI Skin: no symptoms reported Psychiatric/Neurological: No Symptoms Reported Past Aacecax-Vxthli-Jmtfzx Hx Past Med/Social Hx: Reviewed and Corrections made Patient Social History Alcohol Use: Occasionally Uses Smoking Status: Never a Smoker Recent Infectious Disease Expo: No Recent Hopitalizations: No Immunizations Up To Date Date of Influenza Vaccine: May 09, 2020 Seasonal Allergies Seasonal Allergies: No Past Medical History Surgeries: Yes Section, Hysterectomy Respiratory: Yes (EXCERCISE INDUCED ASTHMA) Asthma Cardiac: No Neurological: No : No Reproductive Disorders: Yes (Fibroids) Genitourinary: No Gastrointestinal: No Musculoskeletal: No Endocrine: No HEENT: No Cancer: No Psychosocial: No Integumentary: No Blood Disorders: No Family Medical History Patient reports no known family medical history. Physical Exam Vital Signs Vital Signs - First Documented 01/28/21 18:21 Temp 37.0 Pulse 64 Resp 18 B/P (MAP) 147/104 (118) Pulse Ox 100 O2 Delivery Room Air Capillary Refill : Less Than 3 Seconds Height, Weight, BMI Height: 5'6.00" Weight: 185lbs. 0.0oz. 83.541634ju; 26.00 BMI Method: General Appearance: WD/WN, Anxious HEENT: PERRL/EOMI, Normal ENT Inspection Neck: Normal Inspection; No JVD Respiratory: Lungs Clear, Normal Breath Sounds, No Accessory Muscle Use, No Respiratory Distress Cardiovascular: Regular Rate, Rhythm, No Edema, No Murmur, Normal Peripheral Pulses Gastrointestinal: Normal Bowel Sounds, Non Tender, Soft; No Distended Extremity: Normal Inspection, Non Tender, No Calf Tenderness, No Pedal Edema, Other (Negative Ryder) Neurologic/Psychiatric: Alert, Oriented x3, No Motor/Sensory Deficits, awning hanger helper II- XII Norm as Tested, Other (Anxious, tearful) Skin: Normal Color, Warm/Dry Progress/Results/Core Measures Results/Orders Lab Results Laboratory Tests Test 01/28/21 18:40 01/28/21 21:32 Range/Units White Blood Count 6.2 4.3-11.0 10^3/uL Red Blood Count 3.98 3.80-5.11 10^6/uL Hemoglobin 12.6 11.5-16.0 g/dL Hematocrit 37 35-52 % Mean Corpuscular Volume 94 80-99 fL Mean Corpuscular Hemoglobin 32 25-34 pg Mean Corpuscular Hemoglobin Concent 34 32-36 g/dL Red Cell Distribution Width 12.2 10.0-14.5 % Platelet Count 268 130-400 10^3/uL Mean Platelet Volume 10.7 9.0-12.2 fL Immature Granulocyte % (Auto) 0 % Neutrophils (%) (Auto) 55 42-75 % Lymphocytes (%) (Auto) 34 12-44 % Monocytes (%) (Auto) 6 0-12 % Eosinophils (%) (Auto) 3 0-10 % Basophils (%) (Auto) 1 0-10 % Neutrophils # (Auto) 3.4 1.8-7.8 10^3/uL Lymphocytes # (Auto) 2.1 1.0-4.0 10^3/uL Monocytes # (Auto) 0.4 0.0-1.0 10^3/uL Eosinophils # (Auto) 0.2 0.0-0.3 10^3/uL Basophils # (Auto) 0.1 0.0-0.1 10^3/uL Immature Granulocyte # (Auto) 0.0 0.0-0.1 10^3/uL Prothrombin Time 14.0 12.2-14.7 SEC INR Comment 1.0 0.8-1.4 Activated Partial Thromboplast Time 27 24-35 SEC D-Dimer 1.08 H 0.00-0.49 UG/ML Sodium Level 143 135-145 MMOL/L Potassium Level 3.5 L 3.6-5.0 MMOL/L Chloride Level 107 98-107 MMOL/L Carbon Dioxide Level 25 21-32 MMOL/L Anion Gap 11 5-14 MMOL/L Blood Urea Nitrogen 10 7-18 MG/DL Creatinine 0.83 0.60-1.30 MG/DL Estimat Glomerular Filtration Rate > 60 BUN/Creatinine Ratio 12 Glucose Level 109 H 70-105 MG/DL Calcium Level 9.3 8.5-10.1 MG/DL Corrected Calcium 8.5-10.1 MG/DL Magnesium Level 2.0 1.6-2.4 MG/DL Total Bilirubin 0.3 0.1-1.0 MG/DL Aspartate Amino Transf (AST/SGOT) 23 5-34 U/L Alanine Aminotransferase (ALT/SGPT) 18 0-55 U/L Alkaline Phosphatase 66 40-136 U/L Myoglobin 26.4 10.0-92.0 NG/ML Troponin I < 0.028 < 0.028 <0.028 NG/ML Total Protein 7.4 6.4-8.2 GM/DL Albumin 4.6 H 3.2-4.5 GM/DL TSH [place] Testing 1.01 0.35-4.94 UIU/ML My Orders Orders - JANINE WATTERS MD Cbc With Automated Diff (01/28/21 18:45) Magnesium (01/28/21 18:45) Chest 1 View, Ap/Pa Only (01/28/21 18:45) Ekg Tracing (01/28/21 18:45) Comprehensive Metabolic Panel (01/28/21 18:45) Myoglobin Serum (01/28/21 18:45) Protime With Inr (01/28/21 18:45) Partial Thromboplastin Time (01/28/21 18:45) O2 (01/28/21 18:45) Monitor-Rhythm Ecg Trace Only (01/28/21 18:45) Ed Iv/Invasive Line Start (01/28/21 18:45) Fibrin Degradation Products (01/28/21 18:45) Troponin I (01/28/21 18:45) Nitroglycerin 0.4 Mg Btl 25's (Nitrostat (01/28/21 18:45) Aspirin Chewable Tablet (Baby Aspirin Ch (01/28/21 18:45) Thyroid Analyzer (01/28/21 18:45) Ct Angio Chest W (01/28/21 20:10) Iohexol Injection (Omnipaque 350 Mg/Ml 1 (01/28/21 20:45) Received Contrast (Hold Metformin- Contr (01/28/21 20:45) Ns (Ivpb) (Sodium Chloride 0.9% Ivpb Bag (01/28/21 20:45) Troponin I (01/28/21 21:30) Medications Given in ED Current Medications Medications Dose Ordered Sig/Kerri Route Start Time Stop Time Status Last Admin Dose Admin Iohexol 100 ml ONCE ONCE IV 01/28/21 20:45 01/28/21 20:46 DC 01/28/21 20:52 68 ML Nitroglycerin 0.4 mg UD PRN SL 01/28/21 18:45 01/28/21 22:47 DC 01/28/21 18:57 0.4 MG Sodium Chloride 100 ml ONCE ONCE IV 01/28/21 20:45 01/28/21 20:46 DC 01/28/21 20:52 80 ML Vital Signs/I&O 01/28/21 01/28/21 18:21 22:40 Temp 37.0 Pulse 64 52 Resp 18 20 B/P (MAP) 147/104 (118) 117/77 (118) Pulse Ox 100 94 O2 Delivery Room Air Room Air Blood Pressure Mean: 118 Progress Progress Note #1: Time: 18:41 Progress Note Patient presently rates her pain as 3/10 between her shoulder blades. She is not having discomfort in the chest at present. Rhythm is sinus at a normal rate on the monitor. She is receiving nitroglycerin as she is presently hypertensive. She does not need aspirin as she took Anacin (400 mg aspirin) prior to arrival. Progress Note #2: Time: 20:19 Progress Note Work-up is unremarkable except for elevated D-dimer. I discussed the need for obtaining CT angiogram of the chest, especially given her symptoms of pain in the upper back. Patient is agreeable to CT. She is not experiencing any pain at this time. She is tearful and anxious. She was offered an anxiolytic and declines at this time. She will let me know if she changes her mind. Progress Note #3: Progress Note CT angiogram of the chest was unremarkable. Repeat troponin was negative. Chest pain and upper back pain resolved. See discharge instructions for further discussion. Initial ECG Impression Date: Jan 28, 2021 Initial ECG Impression Time: 18:30 Initial ECG Rate: 82 Initial ECG Rhythm: Normal Sinus Initial ECG Intervals: Normal Initial ECG Impression: Normal Comment Normal sinus rhythm with no ST elevation or depression. No abnormal intervals or axis deviation. Diagnostic Imaging Diagonstic Imaging: Xray Plain Films/CT/US/NM/MRI: chest Comments Chest x-ray reviewed by me and report reviewed. See report below: NAME: HEMANTH MURGUIA [facility] REC#: [id number] PT STATUS: REG ER : 1975 PHYSICIAN: JANINE WATTERS MD ADMIT DATE: 01/28/21/ER Draft Date of Exam:01/28/21 CHEST 1 VIEW, AP/PA ONLY Indication: Left-sided chest pain and elevated blood pressure. Time of Exam: 7:02 PM Comparison is made with prior chest from 09/26/2020. The heart size is normal. The pulmonary vascularity is unremarkable. The lungs are clear. No infiltrate, effusion or pneumothorax is detected. Impression: No acute cardiopulmonary process is detected. Dictated on workstation # [id number] Dict: 01/28/211902 Trans: 01/28/211905 [facility] [id number] Interpreted by: ESTEBAN FIGUEROA MD Diagonstic Imaging: CT Plain Films/CT/US/NM/MRI: chest Comments NAME: HEMANTH MURGUIA REC#: [id number] PT STATUS: REG ER : 1975 PHYSICIAN: JANINE WATTERS MD ADMIT DATE: 01/28/21/ER Signed Date of Exam:01/28/21 CT ANGIO CHEST W PROCEDURE: CT angiography of the chest with contrast. TECHNIQUE: Multiple contiguous axial images were obtained through the chest after uneventful bolus administration of intravenous contrast. 3D reconstructed CTA MIP acquisitions were also performed. Auto Exposure Controls were utilized during the CT exam to meet ALARA standards for radiation dose reduction. INDICATION: Dizziness. Chest pain. Hypertension. COMPARISON: Chest radiograph 01/28/2021. FINDINGS: No pulmonary artery filling defects. Normal caliber thoracic aorta. Normal heart size. No pericardial effusion. No mediastinal or hilar lymphadenopathy. The lungs are clear. No pleural effusion or pneumothorax. No acute osseous findings. The visualized upper abdominal contents are unremarkable. IMPRESSION: 1. No pulmonary emboli. 2. No acute CT findings in the chest. Dictated by: Dictated on workstation # [id number] Dict: 01/28/212121 Trans: 01/28/212207 [facility] [id number] Interpreted by: NAVIN LEON MD Electronically signed by: NAVIN LEON MD 01/28/212207 Departure Impression Primary Impression: Chest discomfort Additional Impressions: Palpitations Hypertension Qualified Codes: I10 - Essential (primary) hypertension Upper back pain Disposition: HOME, SELF-CARE Condition: Improved Departure-Patient Inst. Decision time for Depature: 22:31 Referrals: ROBIN SHARMA DO (PCP/Family) Primary Care Physician YASMEEN SHERIDAN MD FACP [facility] SHEILA URIARTE MD Patient Instructions: Chest Pain, Palpitations Add. Discharge Instructions: Follow-up with your primary care provider soon as possible and seek consultation with a tractor mechanic apprentice for your chest pain and palpitations. Avoid stimulants that can elevate your blood pressure such as decongestant medications, excessive caffeine, energy drinks, diet pills, etc. Also avoid excessive salt. Drink plenty of water to stay well-hydrated. Take aspirin 81 mg daily until otherwise instructed. Call with questions or concerns. Return to care for worsening symptoms including chest pain that does not immediately resolve with rest, persistent racing heart, shortness of breath, etc. When in doubt, return to care for further evaluation. All discharge instructions reviewed with patient and/or family. Voiced understanding. Copy Copies To 1: ROBIN SHARMA JOSHUA T MD Jan 28, 2021 18:54
[2021-01-28 18:55] LABS: BASOPHILS # (AUTO) 0.1 10^3/uL (0.0-0.1); BASOPHILS % (AUTO) 1 % (0-10); EOSINOPHILS # (AUTO) 0.2 10^3/uL (0.0-0.3); EOSINOPHILS % (AUTO) 3 % (0-10); HEMATOCRIT 37 % (35-52); HEMOGLOBIN 12.6 g/dL (11.5-16.0); LYMPHOCYTES # (AUTO) 2.1 10^3/uL (1.0-4.0); LYMPHOCYTES % (AUTO) 34 % (12-44); MEAN CORPUSCULAR HEMOGLOBIN 32 pg (25-34); MEAN CORPUSCULAR HGB CONC 34 g/dL (32-36); MEAN CORPUSCULAR VOLUME 94 fL (80-99); MEAN PLATELET VOLUME 10.7 fL (9.0-12.2); MONOCYTES # (AUTO) 0.4 10^3/uL (0.0-1.0); MONOCYTES % (AUTO) 6 % (0-12); NEUTROPHILS # (AUTO) 3.4 10^3/uL (1.8-7.8); NEUTROPHILS % (AUTO) 55 % (42-75); PLATELET COUNT 268 10^3/uL (130-400); WHITE BLOOD COUNT 6.2 10^3/uL (4.3-11.0)
[2021-01-28 19:07] LABS: ALBUMIN 4.6 GM/DL (3.2-4.5); CHLORIDE 107 MMOL/L (98-107); POTASSIUM 3.5 MMOL/L (3.6-5.0); SODIUM 143 MMOL/L (135-145)
--- NOTE | 2021-01-28 19:07 | Diagnostic Imaging Report ---
Indication: Left-sided chest pain and elevated blood pressure. Time of Exam: 7:02 PM Comparison is made with prior chest from 09/26/2020. The heart size is normal. The pulmonary vascularity is unremarkable. The lungs are clear. No infiltrate, effusion or pneumothorax is detected. Impression: No acute cardiopulmonary process is detected. Dictated by: Dictated on workstation # [id number]
[2021-01-28 19:08] LABS: CALCIUM 9.3 MG/DL (8.5-10.1)
[2021-01-28 19:09] LABS: GLUCOSE 109 MG/DL (70-105)
[2021-01-28 19:10] LABS: TOTAL PROTEIN 7.4 GM/DL (6.4-8.2)
[2021-01-28 19:11] LABS: BILIRUBIN,TOTAL 0.3 MG/DL (0.1-1.0); CARBON DIOXIDE 25 MMOL/L (21-32)
[2021-01-28 19:13] LABS: ALKALINE PHOSPHATASE 66 U/L (40-136); CREATININE SERUM 0.83 MG/DL (0.60-1.30); GFR ESTIMATED > 60
[2021-01-28 19:14] LABS: BUN/CREATININE RATIO 12
[2021-01-28 19:16] LABS: ALANINE AMINOTRANSFERASE 18 U/L (0-55)
[2021-01-28 19:37] LABS: TSH (THYROID ANALYZER) 1.01 UIU/ML (0.35-4.94)
[2021-01-28] MEDS ORDERED: HOLD METFORMIN - RECEIVED CONTRAST 20 ML VIAL IV SCH (20:45)
[2021-01-28] MEDS ORDERED: IOHEXOL 350 MG/ML 100 ML (OMNIPAQUE 350) VIAL IV ONE (20:45)
[2021-01-28] MEDS ORDERED: NS 100 ML (IVPB) BAG IV ONE (20:45)
--- NOTE | 2021-01-28 21:26 | Diagnostic Imaging Report ---
PROCEDURE: CT angiography of the chest with contrast. TECHNIQUE: Multiple contiguous axial images were obtained through the chest after uneventful bolus administration of intravenous contrast. 3D reconstructed CTA MIP acquisitions were also performed. Auto Exposure Controls were utilized during the CT exam to meet ALARA standards for radiation dose reduction. INDICATION: Dizziness. Chest pain. Hypertension. COMPARISON: Chest radiograph 01/28/2021. FINDINGS: No pulmonary artery filling defects. Normal caliber thoracic aorta. Normal heart size. No pericardial effusion. No mediastinal or hilar lymphadenopathy. The lungs are clear. No pleural effusion or pneumothorax. No acute osseous findings. The visualized upper abdominal contents are unremarkable. IMPRESSION: 1. No pulmonary emboli. 2. No acute CT findings in the chest. Dictated by: Dictated on workstation # [id number]
[2021-01-28 22:40] VITALS: BP 117/77
== END 2021-01-28 22:44 | disposition home or self-care (01) ==
LOC: EDUNIT# 18:17 → ER 18:19
DX: I10 Essential (primary) hypertension (principal); R00.2 Palpitations; M54.6 Pain in thoracic spine; R79.1 Abnormal coagulation profile; J45.990 Exercise induced bronchospasm
CPT/HCPCS: 36415; 71045; 71275; 80053; 83735; 83874; 84443; 84484; 85025; 85379; 85610; 85730; 93005; 93041

== ENCOUNTER → 2021-02-11 | Outpatient (CLI) | payer OTHER ==
--- NOTE | 2021-02-11 17:15 | Diagnostic Imaging Report ---
INDICATION: Lower abdominal and pelvic pain Pelvic sonography performed with transabdominal views only. The uterus is surgically absent. The right ovary measured 3.0 x 2.1 x 2.3 cm containing color flow. The left ovary measured 2.7 x 1.0 x 2.6 cm containing color flow. There is no free fluid. IMPRESSION: Normal-appearing ovaries bilaterally. Patient is status post hysterectomy. Dictated by: Dictated on workstation # [id number]
== END ==
LOC: RAD 14:00
PROVIDERS: ATTEND Obstetrics & Gynecology
DX: R10.30 Lower abdominal pain, unspecified (principal); R10.2 Pelvic and perineal pain; Z90.711 Acquired absence of uterus with remaining cervical stump
CPT/HCPCS: 76856

== ENCOUNTER 2021-09-09 20:49 | Emergency (ER) | payer OTHER ==
[~2021-09-09] VITALS: Ht 168 cm; Wt 75.0 kg
[~2021-09-09 20:49] MED LIST changes: -DCS100C PO; +DOCU-239 PO
[2021-09-09 21:00] VITALS: BP 154/100
--- NOTE | 2021-09-09 21:16 | ED Headache ---
General Stated Complaint: HIGH BLOOD PRESSURE, FOSTER, L SIDE NUMBNESS Source: patient History of Present Illness Date Seen by Provider: Sep 09, 2021 Time Seen by Provider: 20:54 Initial Comments PT ARRIVES VIA POV FROM HOME C/O HEADACHE X 3 DAYS, WORSE TODAY HEADACHE IS IN LEFT YARSANISM MOSTLY, BUT ALSO IN BACK OF HEAD HAS SOME NUMBNESS/TINGLING TO LEFT YARSANISM NO MOTOR DEFICITS ANYWHERE HAS A WHITE SPOT TO LATERAL ASPECT OF VISION IN LEFT EYE PT HAS CHRONIC ONGOING GENERALIZED BODY ACHES AND NECK PAIN--TOOK MOBIC AT 1700--NO RELIEF. HAS BEEN REFERRED TO PAIN MANAGEMENT AT [address], BUT PT STATES "THEY COULDN'T DO ANYTHING" AND REFERRED HER BACK TO DR. SHARMA. HAS FREQUENT HEADACHES, BUT NOT NORMALLY THIS BAD. HAS NOT SOUGHT CARE FOR HEADACHE UNTIL TODAY NO NAUSEA/VOMITING NO CHEST PAIN NO SHORTNESS OF BREATH NO PALPITATIONS NO DIZZINESS PT HAS HAD SOME ONGOING ISSUES WITH TRANSIENT HTN AND PALPITATIONS--PT STATES WAS DUE TO ASPIRIN. PT IS EXTREMELY ANXIOUS, VERY TREMULOUS AND CRYING ON ARRIVAL. PT HAS HAD COVID-19 VACCINE X 3, WITH BOOSTER IN MAY 2021 PT'S DAUGHTER HAD COVID-19 ABOUT 2 WEEKS AGO, AND PT HAD SAME SYMPTOMS--PT WAS NOT SEEN OR TESTED FOR COVID-19. THOSE SYMPTOMS HAVE RESOLVED. PCP: DR. SHARMA Allergies and Home Medications Allergies Coded Allergies: No Known Drug Allergies (Unverified , 04/14/17) Patient Home Medication List Home Medication List Reviewed: Yes Cyclobenzaprine HCl (Cyclobenzaprine HCl) 5 Mg Tablet, 5-10 MG PO TID Prescribed by: DUKE GREENE on 09/09/213 Docusate Sodium (Dok) 100 Mg Capsule, 100 MG PO BID PRN for CONSTIPATION-1ST LINE Prescribed by: TIKI WALL on 10/28/20 0712 Hydrocodone Bit/Acetaminophen (HYDROcodone/APAP 7.5/325 TAB) 1 Ea Tablet, 2 EA PO Q6H PRN for Pain-See Instructions Prescribed by: TIKI WALL on 10/28/20 07 Ibuprofen (Ibu) 600 Mg Tablet, 600 MG PO Q6H Prescribed by: TIKI WALL on 10/28/20 0711 Simethicone (Mi-Acid) 80 Mg Tab.chew, 40 MG PO TID PRN for INDIGESTION 2ND LINE Prescribed by: TIKI WALL on 10/28/20 0711 Review of Systems Review of Systems Constitutional: no symptoms reported; No dizziness Eyes: See HPI Ears, Nose, Mouth, Throat: no symptoms reported Respiratory: no symptoms reported Cardiovascular: no symptoms reported Gastrointestinal: no symptoms reported Genitourinary: no symptoms reported Musculoskeletal: no symptoms reported Skin: no symptoms reported Psychiatric/Neurological: See HPI, Headache Past Yrtatcy-Jvgduo-Qqxxzm Hx Patient Social History Tobacco Use?: No Substance use?: No Alcohol Use?: No Seasonal Allergies Seasonal Allergies: No Past Medical History Surgeries: Yes (RA-HYST/BSO 10/2020; X 1) Section, Hysterectomy, Oophorectomy Respiratory: Yes (EXCERCISE INDUCED ASTHMA) Asthma Cardiac: No Neurological: Yes Headaches /Migraines Reproductive Disorders: Yes (Fibroids) [employer] History: Hysterectomy Genitourinary: No Gastrointestinal: No Musculoskeletal: Yes (GENERALIZED PAIN/BODY ACHES AND NECK PAIN ) Endocrine: No HEENT: No Cancer: No Psychosocial: No Integumentary: No Blood Disorders: No Family Medical History Patient reports no known family medical history. Physical Exam Vital Signs Vital Signs - First Documented 09/09/21 20:55 Temp 36.2 Pulse 104 Resp 18 B/P (MAP) 154/100 (118) Pulse Ox 100 O2 Delivery Room Air Capillary Refill : Height, Weight, BMI Height: 5'6.00" Weight: 185lbs. 0.0oz. 83.725915lb; 26.00 BMI Method: General Appearance: WD/WN, no apparent distress, other (PT WALKS AND MOVES VERY QUICKLY WITHOUT DIFFICULTY. PT IS EXTREMELY ANXIOUS, TREMULOUS AND CRYING. ) HEENT: PERRL/EOMI, normal ENT inspection, TMs normal, pharynx normal Neck: non-tender, full range of motion, supple, normal inspection; No carotid bruit Cardiovascular: normal peripheral pulses, no edema, no gallop, no JVD, no murmur, tachycardia (HR 100-125, DEPENDING ON ANXIETY) Respiratory: lungs clear, normal breath sounds, no respiratory distress, no accessory muscle use Gastrointestinal: normal bowel sounds, non tender, soft Back: normal inspection Extremities: normal range of motion, non-tender, normal inspection, no pedal edema, no calf tenderness, normal capillary refill Psychiatric: alert, oriented x 3 Crainal Nerves: normal hearing, normal speech, PERRL; No facial droop Coordination/Gait: normal finger to nose, normal gait, negative Romberg's sign Motor/Sensory: no motor deficit, no sensory deficit, no pronator drift Skin: normal color, warm/dry; No rash Progress/Results/Core Measures Results/Orders Lab Results Laboratory Tests Test 09/09/21 21:00 09/09/21 21:04 09/09/21 22:03 Range/Units White Blood Count 8.6 4.3-11.0 10^3/uL Red Blood Count 3.80 3.80-5.11 10^6/uL Hemoglobin 12.1 11.5-16.0 g/dL Hematocrit 36 35-52 % Mean Corpuscular Volume 94 80-99 fL Mean Corpuscular Hemoglobin 32 25-34 pg Mean Corpuscular Hemoglobin Concent 34 32-36 g/dL Red Cell Distribution Width 13.3 10.0-14.5 % Platelet Count 243 130-400 10^3/uL Mean Platelet Volume 11.3 9.0-12.2 fL Immature Granulocyte % (Auto) 0 % Neutrophils (%) (Auto) 57 42-75 % Lymphocytes (%) (Auto) 33 12-44 % Monocytes (%) (Auto) 7 0-12 % Eosinophils (%) (Auto) 2 0-10 % Basophils (%) (Auto) 1 0-10 % Neutrophils # (Auto) 4.9 1.8-7.8 10^3/uL Lymphocytes # (Auto) 2.9 1.0-4.0 10^3/uL Monocytes # (Auto) 0.6 0.0-1.0 10^3/uL Eosinophils # (Auto) 0.1 0.0-0.3 10^3/uL Basophils # (Auto) 0.1 0.0-0.1 10^3/uL Immature Granulocyte # (Auto) 0.0 0.0-0.1 10^3/uL Prothrombin Time 13.0 12.2-14.7 SEC INR Comment 0.9 0.8-1.4 Activated Partial Thromboplast Time 28 24-35 SEC D-Dimer 0.81 H 0.00-0.49 UG/ML Sodium Level 140 135-145 MMOL/L Potassium Level 3.2 L 3.6-5.0 MMOL/L Chloride Level 106 98-107 MMOL/L Carbon Dioxide Level 23 21-32 MMOL/L Anion Gap 11 5-14 MMOL/L Blood Urea Nitrogen 12 7-18 MG/DL Creatinine 0.74 0.60-1.30 MG/DL Estimat Glomerular Filtration Rate 102 BUN/Creatinine Ratio 16 Glucose Level 122 H 70-105 MG/DL Calcium Level 9.3 8.5-10.1 MG/DL Corrected Calcium 9.1 8.5-10.1 MG/DL Total Bilirubin 0.3 0.1-1.0 MG/DL Aspartate Amino Transf (AST/SGOT) 18 5-34 U/L Alanine Aminotransferase (ALT/SGPT) 13 0-55 U/L Alkaline Phosphatase 60 40-136 U/L Troponin I < 0.028 <0.028 NG/ML Total Protein 7.1 6.4-8.2 GM/DL Albumin 4.2 3.2-4.5 GM/DL Glucometer 118 H 70-110 MG/DL Urine Color YELLOW Urine Clarity CLEAR Urine pH 6.5 5-9 Urine Specific [place] <=1.005 1.016-1.022 Urine Protein NEGATIVE NEGATIVE Urine Glucose (UA) NEGATIVE NEGATIVE Urine Ketones NEGATIVE NEGATIVE Urine Nitrite NEGATIVE NEGATIVE Urine Bilirubin NEGATIVE NEGATIVE Urine Urobilinogen 0.2 < = 1.0 MG/DL Urine Leukocyte Esterase NEGATIVE NEGATIVE Urine RBC (Auto) NEGATIVE NEGATIVE Urine RBC NONE /HPF Urine WBC 2-5 /HPF Urine Squamous Epithelial Cells 0-2 /HPF Urine Crystals PRESENT H /LPF Urine Amorphous Sediment RARE MARCELA URATES H /LPF Urine Bacteria FEW H /HPF Urine Casts NONE /LPF Urine Mucus NEGATIVE /LPF Urine Culture Indicated YES My Orders Orders - DUKE GREENE DO Cbc With Automated Diff (09/09/21 20:55) Protime With Inr (09/09/21 20:55) Partial Thromboplastin Time (09/09/21 20:55) Comprehensive Metabolic Panel (09/09/21 20:55) Fibrin Degradation Products (09/09/21 20:55) Troponin I Radha (09/09/21 20:55) Ua Culture If Indicated (09/09/21 20:55) Chest 1 View, Ap/Pa Only (09/09/21 20:55) Ekg Tracing (09/09/21 20:55) Accucheck Stat ONCE (09/09/21 20:55) Ed Iv/Invasive Line Start (09/09/21 20:55) Ed Iv/Invasive Line Start (09/09/21 20:55) Vital Signs Stroke Patient Q15M (09/09/21 20:55) Ct Head Wo-R/O Stroke (09/09/21 20:55) Intake & Output 06,14,22 (09/09/21 20:55) Monitor-Rhythm Ecg Trace Only (09/09/21 20:55) Dysphagia Screening Tool (09/09/21 20:55) Ct Angio Head/Neck (09/09/21 21:25) Iohexol Injection (Omnipaque 350 Mg/Ml 1 (09/09/21 22:00) Received Contrast (Hold Metformin- Contr (09/09/21 22:00) Sodium Chloride Flush (Catheter Flush Sy (09/09/21 22:00) Ns (Ivpb) (Sodium Chloride 0.9% Ivpb Bag (09/09/21 22:00) Urine Culture (09/09/21 22:03) Fentanyl Inj (Sublimaze Injection) (09/09/21 22:30) Rx-Cyclobenzaprine Tablet (Rx-Flexeril T (09/09/21 22:54) Medications Given in ED Current Medications Medications Dose Ordered Sig/Kerri Route Start Time Stop Time Status Last Admin Dose Admin Fentanyl Citrate 25 mcg ONCE ONCE IVP 09/09/21 22:30 09/09/21 22:31 DC 09/09/21 22:49 25 MCG Vital Signs/I&O 09/09/21 09/09/21 09/09/21 20:55 21:00 23:20 Temp 36.2 Pulse 104 104 56 Resp 18 18 14 B/P (MAP) 154/100 (118) 154/100 107/71 Pulse Ox 100 100 95 O2 Delivery Room Air Room Air FSBG Bedside Testing Finger Stick Blood Glucose: 118 Progress Progress Note : Progress Note STROKE PROTOCOL INITIATED PT EVENTUALLY CALMED AND BP AND HR DOWN TO NORMAL WITHOUT ANY TREATMENT--HR IN 70'S, BP 105-110 SYSTOLIC PRIOR TO DISMISSAL PT NOW ANIMATED AND TALKATIVE AND SMILING NOW C/O OF HER CHRONIC PAIN ISSUES--C/O HER CHRONIC BACK PAIN, NECK PAIN, ARM PAIN, BODY ACHES, ETC. --FENTANYL ORDERED NO DETERIORATION IN PT'S CONDITION DURING ER STAY Initial ECG Impression Date: Sep 09, 2021 Initial ECG Impression Time: 20:58 Initial ECG Rate: 112 Initial ECG Rhythm: S.Tach Diagnostic Imaging Comments CXR---PER RADIOLOGIST REPORT AT CT HEAD--PER RADIOLOGIST REPORT AT 2124 FINDINGS: There is no midline shift or mass effect. The ventricles and sulci are unremarkable. No evidence for acute intracranial hemorrhage, abnormal extra-axial fluid collections or cerebral edema is present. The basilar cisterns are unremarkable. The bony calvarium is intact. The visualized paranasal sinuses and mastoid air cells are clear. IMPRESSION: Negative appearing noncontrast CT of the head. CTA OF HEAD/NECK--PER RADIOLOGIST REPORT AT 2248 CTA NECK: Aorta: Aortic arch is limited in evaluation with artifact present. Does appear relatively normal, with standard three vessel branching pattern. Right Common/Internal/External Carotid Artery: Patent and without significant stenosis. Left Common/Internal/External Carotid Artery: Patent and without significant stenosis. Vertebral arteries: Codominant. Patent and without significant stenosis. Non-vascular: No concerning cervical lymphadenopathy. The airway is patent. Multinodular thyroid gland. CTA HEAD: Anterior Circulation: The intracranial internal carotid arteries are patent. The bilateral middle cerebral arteries are patent and without stenosis. The anterior cerebral arteries are patent and without stenosis. Slightly hypoplastic left A1 segment. Posterior Circulation: The bilateral intracranial segments of the vertebral arteries are patent. The basilar artery is patent and without stenosis. The posterior cerebral arteries are patent. Post Contrast Head: No concerning enhancement on delayed post-contrast imaging. IMPRESSION: 1. Negative CTA of the head. 2. Negative CTA of the neck. Reviewed: Reviewed by Me Departure Impression Primary Impression: Headache Additional Impression: Generalized body aches Disposition: HOME, SELF-CARE Condition: Stable Departure-Patient Inst. Decision time for Depature: 22:50 Referrals: ROBIN SHARMA DO (PCP/Family) Primary Care Physician Patient Instructions: Headache, Adult (DC), Chronic Pain (DC) Add. Discharge Instructions: TAKE MOBIC EVERY DAY MOIST HEAT TO SORE AREAS AT 20 MINUTE INTERVALS FOLLOW UP WITH DR. SHARMA THIS WEEK FOR FURTHER CARE Scripts Cyclobenzaprine HCl (Cyclobenzaprine HCl) 5 Mg Tablet 5-10 MG PO TID for Muscle Spasms, #15 TAB Prov: DUKE GREENE DO 09/09/21 DUKE GREENE DO Sep 09, 2021 21:16
[2021-09-09 21:22] LABS: BASOPHILS # (AUTO) 0.1 10^3/uL (0.0-0.1); BASOPHILS % (AUTO) 1 % (0-10); EOSINOPHILS # (AUTO) 0.1 10^3/uL (0.0-0.3); EOSINOPHILS % (AUTO) 2 % (0-10); HEMATOCRIT 36 % (35-52); HEMOGLOBIN 12.1 g/dL (11.5-16.0); LYMPHOCYTES # (AUTO) 2.9 10^3/uL (1.0-4.0); LYMPHOCYTES % (AUTO) 33 % (12-44); MEAN CORPUSCULAR HEMOGLOBIN 32 pg (25-34); MEAN CORPUSCULAR HGB CONC 34 g/dL (32-36); MEAN CORPUSCULAR VOLUME 94 fL (80-99); MEAN PLATELET VOLUME 11.3 fL (9.0-12.2); MONOCYTES # (AUTO) 0.6 10^3/uL (0.0-1.0); MONOCYTES % (AUTO) 7 % (0-12); NEUTROPHILS # (AUTO) 4.9 10^3/uL (1.8-7.8); NEUTROPHILS % (AUTO) 57 % (42-75); PLATELET COUNT 243 10^3/uL (130-400); WHITE BLOOD COUNT 8.6 10^3/uL (4.3-11.0)
--- NOTE | 2021-09-09 21:22 | Diagnostic Imaging Report ---
PROCEDURE: CT head wo r/o stroke. TECHNIQUE: Multiple contiguous axial images were obtained through the brain without the use of intravenous contrast. Auto Exposure Controls were utilized during the CT exam to meet ALARA standards for radiation dose reduction. INDICATION: 46-year-old female, stroke like symptoms. CORRELATION: None FINDINGS: There is no midline shift or mass effect. The ventricles and sulci are unremarkable. No evidence for acute intracranial hemorrhage, abnormal extra-axial fluid collections or cerebral edema is present. The basilar cisterns are unremarkable. The bony calvarium is intact. The visualized paranasal sinuses and mastoid air cells are clear. IMPRESSION: Negative appearing noncontrast CT of the head. Dictated by: Dictated on workstation # [id number]
[2021-09-09 21:25] LABS: ALBUMIN 4.2 GM/DL (3.2-4.5); CHLORIDE 106 MMOL/L (98-107); POTASSIUM 3.2 MMOL/L (3.6-5.0); SODIUM 140 MMOL/L (135-145)
[2021-09-09 21:26] LABS: CALCIUM 9.3 MG/DL (8.5-10.1)
[2021-09-09 21:27] LABS: GLUCOSE 122 MG/DL (70-105)
[2021-09-09 21:28] LABS: TOTAL PROTEIN 7.1 GM/DL (6.4-8.2)
[2021-09-09 21:29] LABS: BILIRUBIN,TOTAL 0.3 MG/DL (0.1-1.0); CARBON DIOXIDE 23 MMOL/L (21-32)
[2021-09-09 21:31] LABS: ALKALINE PHOSPHATASE 60 U/L (40-136); CREATININE SERUM 0.74 MG/DL (0.60-1.30); GFR ESTIMATED 102
--- NOTE | 2021-09-09 21:31 | Diagnostic Imaging Report ---
INDICATION: STROKE SYMPTOMS, HYPERTENSION. TECHNIQUE: Single view chest 9:25 PM. CORRELATION STUDY: 01/28/2021 FINDINGS: The heart size, mediastinal configuration and pulmonary vascularity are within normal limits. The lungs are clear with no consolidating infiltrate. There is no significant effusion or pneumothorax. IMPRESSION: 1. Negative for acute abnormality of the chest. Dictated by: Dictated on workstation # [id number]
[2021-09-09 21:32] LABS: BUN/CREATININE RATIO 16
[2021-09-09 21:33] LABS: FIBRIN DEGRADATION PRODUCTS 0.81 UG/ML (0.00-0.49); INR 0.9 (0.8-1.4)
[2021-09-09 21:34] LABS: ALANINE AMINOTRANSFERASE 13 U/L (0-55)
[2021-09-09] MEDS ORDERED: CATHETER FLUSH 10 ML SYR IV PRN (22:00)
[2021-09-09] MEDS ORDERED: NS 100 ML (IVPB) BAG IV ONE (22:00)
[2021-09-09] MEDS ORDERED: IOHEXOL 350 MG/ML 100 ML (OMNIPAQUE 350) VIAL IV ONE (22:00)
[2021-09-09] MEDS ORDERED: HOLD METFORMIN - RECEIVED CONTRAST 20 ML VIAL IV SCH (22:00)
[2021-09-09 22:12] LABS: BILIRUBIN,URINE NEGATIVE (NEGATIVE); CLARITY,URINE CLEAR; COLOR,URINE YELLOW; GLUCOSE, URINE (UA) NEGATIVE (NEGATIVE); KETONES,URINE NEGATIVE (NEGATIVE); LEUKOCYTE ESTERASE ,URINE NEGATIVE (NEGATIVE); NITRITE,URINE NEGATIVE (NEGATIVE); PH,URINE 6.5 (5-9); PROTEIN,URINE NEGATIVE (NEGATIVE)
[2021-09-09 22:21] LABS: AMORPHOUS SEDIMENT,UR RARE AMOR URATES /LPF; BACTERIA,URINE FEW /HPF; SQUAMOUS EPITHELIAL CELL,UR 0-2 /HPF
[2021-09-09] MEDS ORDERED: fentaNYL INJ 100 MCG/2 ML AMP IVP ONE (22:30)
--- NOTE | 2021-09-09 22:46 | Diagnostic Imaging Report ---
PROCEDURE: CT angiography of the head and CT angiography of the neck with and without contrast. TECHNIQUE: Contiguous noncontrast images were obtained from the skull base through the vertex. After intravenous contrast administration, helical CT angiography of the neck was performed. Source data was reformatted into 3D MIP projections. Delayed post contrast acquisition was also obtained. Auto Exposure Controls were utilized during the CT exam to meet ALARA standards for radiation dose reduction. INDICATION: 46-year-old female, left-sided face tingling. Headache, hypertension. COMPARISON: None FINDINGS: Prominent streak artifact from dental christian. CTA NECK: Aorta: Aortic arch is limited in evaluation with artifact present. Does appear relatively normal, with standard three vessel branching pattern. Right Common/Internal/External Carotid Artery: Patent and without significant stenosis. Left Common/Internal/External Carotid Artery: Patent and without significant stenosis. Vertebral arteries: Codominant. Patent and without significant stenosis. Non-vascular: No concerning cervical lymphadenopathy. The airway is patent. Multinodular thyroid gland. CTA HEAD: Anterior Circulation: The intracranial internal carotid arteries are patent. The bilateral middle cerebral arteries are patent and without stenosis. The anterior cerebral arteries are patent and without stenosis. Slightly hypoplastic left A1 segment. Posterior Circulation: The bilateral intracranial segments of the vertebral arteries are patent. The basilar artery is patent and without stenosis. The posterior cerebral arteries are patent. Post Contrast Head: No concerning enhancement on delayed post-contrast imaging. IMPRESSION: 1. Negative CTA of the head. 2. Negative CTA of the neck. Dictated by: Dictated on workstation # [id number]
[2021-09-09] MEDS ORDERED: CYCL5TAB PO (22:53)
[2021-09-09] MEDS ORDERED: RX-CYCLOBENZAPRINE 10 MG (FLEXERIL) TAB PPK#3 PO STA (22:54)
[2021-09-09 23:20] VITALS: BP 107/71
== END 2021-09-09 23:24 | disposition home or self-care (01) ==
LOC: EDUNIT# 20:49 → ER 20:51
DX: R51.9 Headache, unspecified (principal); J45.909 Unspecified asthma, uncomplicated; R00.0 Tachycardia, unspecified
CPT/HCPCS: 36415; 70450; 70496; 70498; 71045; 80053; 81000; 82947; 84484; 84703; 85025; 85379; 85610; 85730; 87088; 93005; 93041

== ENCOUNTER → 2022-03-06 | Outpatient (CLI) | payer OTHER ==
[~2022-03-06] MED LIST changes: +CYCL5TAB PO
--- NOTE | 2022-03-06 15:33 | Diagnostic Imaging Report ---
3-D bilateral screening mammogram with CAD. This study was compared to the prior exams of 09/26/2020 and 07/31/2019. At this time there are no current complaints. The current study was also evaluated with a Computer Aided Detection (CAD) system. FINDINGS: The fibroglandular tissue in both breasts is heterogeneously dense. This does limit the sensitivity of this exam. Overall, there does not appear to have been any significant change when compared to the prior study. No primary or secondary sign of malignancy is noted. IMPRESSION: There is no radiographic evidence for malignancy. ACR BI-RADS Category 1: Negative. Result letter will be mailed to the patient. Note: At least 10% of breast cancer is not imaged by mammography. Dictated by: Dictated on workstation # [id number]
== END ==
LOC: RAD 10:18
PROVIDERS: ATTEND Obstetrics & Gynecology
DX: Z12.31 Encounter for screening mammogram for malignant neoplasm of breast (principal)
CPT/HCPCS: 77063; 77067

== ENCOUNTER 2022-08-06 08:30 | Outpatient (RCR) | payer OTHER | END 2022-08-08 | disposition home or self-care (01) | DX: M54.50 Low back pain, unspecified (principal); M25.559 Pain in unspecified hip; M79.606 Pain in leg, unspecified; M54.6 Pain in thoracic spine; M54.2 Cervicalgia; Z74.09 Other reduced mobility; R27.8 Other lack of coordination ==

== ENCOUNTER → 2022-09-08 | Outpatient (RCR) | payer OTHER | END | disposition home or self-care (01) | DX: M54.50 Low back pain, unspecified (principal); M25.559 Pain in unspecified hip; M79.606 Pain in leg, unspecified; M54.6 Pain in thoracic spine; M54.2 Cervicalgia; Z74.09 Other reduced mobility; R27.8 Other lack of coordination ==

== ENCOUNTER → 2022-10-06 | Outpatient (RCR) | payer OTHER | END | disposition home or self-care (01) | DX: M54.50 Low back pain, unspecified (principal); M25.559 Pain in unspecified hip; M79.606 Pain in leg, unspecified; M54.6 Pain in thoracic spine; M54.2 Cervicalgia; J45.909 Unspecified asthma, uncomplicated ==

== ENCOUNTER 2022-11-04 15:59 | Outpatient (RCR) | payer OTHER | END 2022-11-06 | disposition home or self-care (01) | DX: M54.50 Low back pain, unspecified (principal); M25.559 Pain in unspecified hip; M79.606 Pain in leg, unspecified; M54.6 Pain in thoracic spine; M54.2 Cervicalgia; R26.89 Other abnormalities of gait and mobility ==

== ENCOUNTER 2022-12-02 15:53 | Outpatient (RCR) | payer OTHER | END 2022-12-06 | disposition home or self-care (01) | DX: M54.50 Low back pain, unspecified (principal); M25.559 Pain in unspecified hip; M79.606 Pain in leg, unspecified; M54.6 Pain in thoracic spine; M54.2 Cervicalgia; J45.909 Unspecified asthma, uncomplicated ==

== ENCOUNTER 2022-12-31 15:39 | Outpatient (RCR) | payer OTHER | END 2023-01-06 | disposition home or self-care (01) | DX: M54.50 Low back pain, unspecified (principal); M25.559 Pain in unspecified hip; M79.606 Pain in leg, unspecified; M54.6 Pain in thoracic spine; M54.2 Cervicalgia; J45.909 Unspecified asthma, uncomplicated ==

== ENCOUNTER 2023-02-04 16:58 | Outpatient (RCR) | payer OTHER | END 2023-02-05 | disposition home or self-care (01) | DX: M54.50 Low back pain, unspecified (principal); M25.559 Pain in unspecified hip; M79.606 Pain in leg, unspecified; M54.6 Pain in thoracic spine; M54.2 Cervicalgia ==

== ENCOUNTER → 2023-03-19 | Outpatient (CLI) | payer OTHER ==
--- NOTE | 2023-03-19 12:43 | Diagnostic Imaging Report ---
INDICATION: Routine screening. Comparison is made with prior mammogram from 03/06/2022 and 09/26/2020. 2-D and 3-D bilateral screening mammography was performed with CAD. Both breasts are heterogeneously dense, limiting the sensitivity of mammography. The parenchymal pattern is stable. No mass or malignant-appearing microcalcifications are seen. Axillae are unremarkable. IMPRESSION: No mammographic features suspicious for malignancy are identified. ACR BI-RADS Category 1: Negative. Result letter will be mailed to the patient. Note: At least 10% of breast cancer is not imaged by mammography. BI-RADS Category 1 Dictated by: Dictated on workstation # [id number]
== END ==
LOC: RAD 07:22
PROVIDERS: ATTEND Nurse Practitioner Women's Health
DX: Z12.31 Encounter for screening mammogram for malignant neoplasm of breast (principal)
CPT/HCPCS: 77063; 77067